=== PATIENT | female | born 1990 | race Caucasian/White ===

== ENCOUNTER → 2017-07-09 10:19 | Outpatient (CLI) | payer MEDICAID, SELFPAY ==
[2017-07-09 11:09] LABS: Hematocrit 39.6 % (37-47); Hemoglobin 12.8 g/dl (12.0-15.0); Mean Corp Hgb Conc 32.3 g/gl (32-36); Mean Corpuscular Hgb 28.8 pg (27.0-32.0); Mean Corpuscular Volume 89.2 fL (81-99); Mean Platelet Vol. 11.5 fl (6.2-12.0); Platelet Count 126 K/mm3 (150-450); RBC Distribution Width CV 13.4 % (11.6-14.6); RBC Distribution Width SD 43.5 fl (35.1-43.9); Red Blood Count 4.44 M/mm3 (4.2-5.4); White Blood Count 11.2 K/mm3 (4.4-11.0)
[2017-07-09 11:10] LABS: Scan Indicated on CBC? Y/N NO
[2017-07-09 12:39] LABS: Group B Strep DNA By PCR Negative (Negative); Internal Control PASS; Probe Check PASS; Specimen Processing Control PASS
== END ==
PROVIDERS: Visit Provider Obstetrics & Gynecology
DX: D69.6 Thrombocytopenia, unspecified (principal); Z36.85 Encounter for antenatal screening for Streptococcus B
CPT/HCPCS: 36415; 85027; 87081; 87653

== ENCOUNTER → 2017-08-02 13:45 | Outpatient (CLI) | payer MEDICAID, SELFPAY ==
[2017-08-02 16:22] LABS: Hematocrit 40.2 % (37-47); Hemoglobin 12.9 g/dl (12.0-15.0); Mean Corp Hgb Conc 32.1 g/gl (32-36); Mean Corpuscular Hgb 29.1 pg (27.0-32.0); Mean Corpuscular Volume 90.5 fL (81-99); Mean Platelet Vol. 11.5 fl (6.2-12.0); Platelet Count 128 K/mm3 (150-450); RBC Distribution Width CV 13.5 % (11.6-14.6); Red Blood Count 4.44 M/mm3 (4.2-5.4); White Blood Count 13.9 K/mm3 (4.4-11.0)
[2017-08-02 16:27] LABS: Scan Indicated on CBC? Y/N NO
== END ==
PROVIDERS: Visit Provider Obstetrics & Gynecology
DX: D69.6 Thrombocytopenia, unspecified (principal)
CPT/HCPCS: 85027

== ENCOUNTER 2017-08-12 07:00 | Inpatient (IN) | payer MEDICAID, SELFPAY ==
[2017-08-12 07:19] VITALS: BMI 35.0
[2017-08-12] MEDS: Lactated Ringers 1,000 ML 50 ML IV ×3 (07:30→21:13)
[2017-08-12] MEDS: Oxytocin 30 units/NS 500 ml 30 UNITS/500 ML IV.SOLN IV (07:52)
[2017-08-12 08:04] LABS: Hematocrit 39.4 % (37-47); Hemoglobin 12.7 g/dl (12.0-15.0); Mean Corp Hgb Conc 32.2 g/gl (32-36); Mean Corpuscular Hgb 28.9 pg (27.0-32.0); Mean Corpuscular Volume 89.7 fL (81-99); Mean Platelet Vol. 11.7 fl (6.2-12.0); Platelet Count 139 K/mm3 (150-450); RBC Distribution Width CV 13.6 % (11.6-14.6); RBC Distribution Width SD 44.1 fl (35.1-43.9); Red Blood Count 4.39 M/mm3 (4.2-5.4); Scan Indicated on CBC? Y/N NO; White Blood Count 12.8 K/mm3 (4.4-11.0)
--- NOTE | 2017-08-12 14:18 | PCM.PN.BLA ---
Progress Note LABOR PROGRESS NOTE Sitting up in rocker at present. States feeling UCs a little more than this am. No epidural or pain med request yet AVSS Pitocin at 11 mIU/min EFM 130-140s with accels. Category I UCs q 2-4 mins. Coupling and spacing. CX: 2.5/70/-2 at last check about 1 hr ago A/P: 40 3/7 wk induction of labor. Continue Pitocin per protocol. Watch progress. pain med including epidural OK if requested. Anticipate
[2017-08-12] MEDS: Nalbuphine 10 MG/ML Ampul IV (16:32)
--- NOTE | 2017-08-12 17:45 | PCM.PN.BLA ---
Progress Note LABOR PROGRESS NOTE Pitocin induction after AROM AVSS Pitocin at 15 mIU/min EFM 120-130s with avg variability Accels. Category I tracing UCs q 2 - 4m ins. CX /-1 last check. A/P: 40 3/7 wk induction elective, social. Continue pitocin Anticipate .
[2017-08-12] MEDS: Ondansetron 4 MG/2 ML Vial IV (18:19)
--- NOTE | 2017-08-12 20:16 | PCM.PN.BLA ---
Progress Note LABOR PROGRESS NOTE Epidural in place AVSS Pitocin induction after AROM EFM 120s with accels. Category I tracing. Early decelerations noted also. UCs q 2-4 mins CX at 1935: 3//-1 A/P: 40 3/7 wk induction . Social. EFM reassuring Continue induction. Anticipate .
[2017-08-12] MEDS: Oxytocin 30 units/NS 500 ml 30 UNITS/500 ML IV.SOLN 334 UNITS IV (23:41)
--- NOTE | 2017-08-12 23:44 | PCM.OB.VAG ---
Vaginal Delivery Maternal Presentation: Elective Induction 40 3/7 wk induction of labor. Method of Induction: Pitocin, Amniotomy Amniotic Membrane Rupture Type: Artificial Amniotic Fluid Description: Clear Final ELY: 08/09/17 Gestational age: 40 Weeks and 3 Days Date of Procedure: 08/12/17 Pre-Operative Diagnosis: 40 3/7 wk induction Post-Operative Diagnosis: same Surgery/ Procedure Performed: Spontaneous Vaginal Delivery Type of Anesthesia: Epidural Description of Procedure: of a lilly viable male over intact perineum. Head delivered VIVIANA. Nuchal cord x one reduced. Shoulders delivered easily. Baby onto bed and OP and nares bulb suctioned. Baby to maternal abdomen for stimulation. Delayed cord clamp x 30 sec. Placenta delivered by spont expulsion, expression. Normal appearing, intact, with 3 v cord and trailing membranes PP exam: no lacerations. EBL 250 cc Pt and infant tolerated delivery well. To recovery, stable condition. Presentation: Vertex, VIVIANA Placental Delivery Description: Spontaneous, Expressed Placenta Disposition: [facility] Cord Vessel Description: 3 Vessels Nuchal Cord Compression: Without compression Cord Entanglement: Around neck x 1, loose Drain: Galeas to straight drain Estimated Blood Loss: 250 Infant A gender: Male (1 minute): 8 (5 minute): 9 Episiotomy Description: None Laceration: None Medications given after delivery: IV Pitocin Complications: None
--- NOTE | 2017-08-12 23:51 | OP.PCM_ITS ---
Vaginal Delivery Maternal Presentation: Elective Induction 40 3/7 wk induction of labor. Method of Induction: Pitocin, Amniotomy Amniotic Membrane Rupture Type: Artificial Amniotic Fluid Description: Clear Final ELY: 08/09/17 Gestational age: 40 Weeks and 3 Days Date of Procedure: 08/12/17 Pre-Operative Diagnosis: 40 3/7 wk induction Post-Operative Diagnosis: same Surgery/ Procedure Performed: Spontaneous Vaginal Delivery Type of Anesthesia: Epidural Description of Procedure: of a lilly viable male over intact perineum. Head delivered VIVINAA. Nuchal cord x one reduced. Shoulders delivered easily. Baby onto bed and OP and nares bulb suctioned. Baby to maternal abdomen for stimulation. Delayed cord clamp x 30 sec. Placenta delivered by spont expulsion, expression. Normal appearing, intact, with 3 v cord and trailing membranes PP exam: no lacerations. EBL 250 cc Pt and infant tolerated delivery well. To recovery, stable condition. Presentation: Vertex, VIVIANA Placental Delivery Description: Spontaneous, Expressed Placenta Disposition: [facility] Cord Vessel Description: 3 Vessels Nuchal Cord Compression: Without compression Cord Entanglement: Around neck x 1, loose Drain: Galeas to straight drain Estimated Blood Loss: 250 Infant A gender: Male (1 minute): 8 (5 minute): 9 Episiotomy Description: None Laceration: None Medications given after delivery: IV Pitocin Complications: None
--- NOTE | 2017-08-12 23:54 | DCINST_ITS ---
Discharge Diet: No Restrictions Discharge Activity: May Shower, May Take a Tub Bath May resume sexual activity in: 4-6 weeks Additional Activity Instructions:: Nothing in the vagina for 4-6 weeks. You may return to work/school in 6 weeks. Additional Instructions: If you experience any of the following, contact your healthcare provider. * Bleeding that soaks a pad every hour for 2 hours * Fever 100.4 or higher * Unrelieved abdominal pain * Problems urinating (including inability to urinate or burning while urinating) . * Visual changes * Severe headache * Flu-like symptoms * Pain or redness in one of both of your breasts * Pain, warmth, tenderness or swelling in your legs, especially the calf area * Frequent nausea and vomiting * Symptoms of depression or anxiety If you experience any of the following, call 911 or go to the nearest Emergency Room. * Chest pain * Problems breathing * Seizure activity * Partial or complete paralysis of a body part, slurred speech, weakness or drooping of the face, or a sudden inability to walk or hold your balance Allergies/Adverse Reactions: Allergies No Known Allergies Allergy (Verified 08/12/17 07:17) Medications to take at Discharge Vits [Prenatabs FA] 1 tablet PO DAILY 06/02/17 Acyclovir 800 mg PO BID 08/12/17 Orders to be completed after discharge: Electric breast pump Time Frame: 1 Year, Location: None Selected Please Follow Up With: Irasema Leong MD - [phone] When: Call to make an appointment with your doctor in 6 weeks. If you had elevated Blood Pressure or 4th degree laceration you will need to be seen in 2 weeks. Primary Care Physician: Celso Oreilly MD [Primary Care Provider] - Proposed Discharge Date: 08/14/17
[2017-08-13] MEDS: Oxytocin 30 units/NS 500 ml 30 UNITS/500 ML IV.SOLN 167 UNITS IV (00:15)
[2017-08-13] MEDS: Ibuprofen 600 MG Tablet PO ×4 (01:54→22:27)
[2017-08-13 05:00] VITALS: BP 101/64; PULSE 80; RESP 18; TEMP 36.8; O2SAT 98
[2017-08-13] MEDS: Acetaminophen 500 MG Tablet 1000 MG PO ×2 (06:50→14:25)
[2017-08-13 08:15] VITALS: BP 95/54; PULSE 76; RESP 18; TEMP 36.6
--- NOTE | 2017-08-13 08:26 | PCM.PN.OB ---
Subjective: PPD#1 doing well Fully dressed and going out to smoke. would like to go home today later in day if possible, to settle in at home. - Physical Exam General: Alert, Oriented x3, Cooperative, No apparent distress HEENT: Atraumatic Neck: Supple Neurological: Cranial nerves II-XII grossly intact Psych/Mental Status: Normal Affect Vital Signs Temp Pulse Resp BP Pulse Ox 98.3 F 80 18 101/64 98 08/13/17 05:00 08/13/17 05:00 08/13/17 05:00 08/13/17 05:00 08/13/17 05:00 Oxygen Delivery Method Room Air Weight: 89.811 kg Body Mass Index (BMI) 35.0 Intake and Output for Last 24 Hours 08/11/17 08/12/17 08/13/17 23:59 23:59 23:59 Intake Total 2735 / 2735 680 / 680 Output Total 700 / 700 1600 / 1600 Balance 2035 / 2035 -920 / -920 Laboratory Tests Past 24 Hrs 08/12/17 07:30 Blood Type A POSITIVE Antibody Screen NEGATIVE
--- NOTE | 2017-08-13 10:09 | NURSING ---
pt voided did not save urine
[2017-08-13] MEDS: Prenatal Vits Tablet 1 TABLET PO (10:28)
[2017-08-13] MEDS: Acyclovir 800 MG Tablet PO ×2 (10:28→22:27)
[2017-08-13 12:00] VITALS: BP 95/54; PULSE 80; RESP 16; TEMP 36.7
[2017-08-13 16:00] VITALS: BP 108/70; PULSE 68; RESP 18; TEMP 36.6
[2017-08-13 19:44] VITALS: BP 109/65; PULSE 74; RESP 18; TEMP 36.3
[2017-08-14 02:07] VITALS: BP 104/55; PULSE 68; RESP 18; TEMP 36.6
[2017-08-14] MEDS: Acetaminophen 500 MG Tablet 1000 MG PO ×2 (02:11→09:42)
[2017-08-14] MEDS: Ibuprofen 600 MG Tablet PO (05:41)
--- NOTE | 2017-08-14 09:36 | PCM.DCVAG ---
Discharge Diet: No Restrictions Discharge Activity: May Shower, May Take a Tub Bath May resume sexual activity in: 4-6 weeks Additional Activity Instructions:: Nothing in the vagina for 4-6 weeks. You may return to work/school in 6 weeks. Additional Instructions: If you experience any of the following, contact your healthcare provider. Bleeding that soaks a pad every hour for 2 hours Fever 100.4 or higher Unrelieved incision or abdominal pain Swelling, redness, discharge or bleeding from your incision or episiotomy site Your incision begins to separate Problems urinating (including inability to urinate or burning while urinating). Visual changes Severe headache Flu-like symptoms Pain or redness in one of both of your breasts Pain, warmth, tenderness or swelling in your legs, especially the calf area Frequent nausea and vomiting Symptoms of depression or anxiety If you experience any of the following, call 911 or go to the nearest Emergency Room. Chest pain Problems breathing Seizure activity Partial or complete paralysis of a body part, slurred speech, weakness or drooping of the face, or a sudden inability to walk or hold your balance Allergies/Adverse Reactions: Allergies No Known Allergies Allergy (Verified 08/12/17 07:17) Medications to take at Discharge Vits [Prenatabs FA] 1 tablet PO DAILY 06/02/17 Acyclovir 800 mg PO BID 08/12/17 Ibuprofen 600 mg PO 4X/DAY PRN #30 tab 08/13/17 The following prescriptions were given: Ibuprofen 600 mg PO 4X/DAY PRN #30 tab PRN Reason: Mild-Mod Pain (1-5/10) Orders to be completed after discharge: Electric breast pump Time Frame: 1 Year, Location: None Selected Please Follow Up With: Irasema Leong MD When: 6 weeks Primary Care Physician: Celso Oreilly MD [Primary Care Provider] - Proposed Discharge Date: 08/14/17
--- NOTE | 2017-08-14 09:37 | DCINST_ITS ---
Discharge Diet: No Restrictions Discharge Activity: May Shower, May Take a Tub Bath May resume sexual activity in: 4-6 weeks Additional Activity Instructions:: Nothing in the vagina for 4-6 weeks. You may return to work/school in 6 weeks. Additional Instructions: If you experience any of the following, contact your healthcare provider. * Bleeding that soaks a pad every hour for 2 hours * Fever 100.4 or higher * Unrelieved incision or abdominal pain * Swelling, redness, discharge or bleeding from your incision or episiotomy site * Your incision begins to separate * Problems urinating (including inability to urinate or burning while urinating) . * Visual changes * Severe headache * Flu-like symptoms * Pain or redness in one of both of your breasts * Pain, warmth, tenderness or swelling in your legs, especially the calf area * Frequent nausea and vomiting * Symptoms of depression or anxiety If you experience any of the following, call 911 or go to the nearest Emergency Room. * Chest pain * Problems breathing * Seizure activity * Partial or complete paralysis of a body part, slurred speech, weakness or drooping of the face, or a sudden inability to walk or hold your balance Allergies/Adverse Reactions: Allergies No Known Allergies Allergy (Verified 08/12/17 07:17) Medications to take at Discharge Vits [Prenatabs FA] 1 tablet PO DAILY 06/02/17 Acyclovir 800 mg PO BID 08/12/17 Ibuprofen 600 mg PO 4X/DAY PRN #30 tab 08/13/17 The following prescriptions were given: Ibuprofen 600 mg PO 4X/DAY PRN #30 tab PRN Reason: Mild-Mod Pain (1-10/14) Orders to be completed after discharge: Electric breast pump Time Frame: 1 Year, Location: None Selected Please Follow Up With: Irasema Leong MD When: 6 weeks Primary Care Physician: Celso Oreilly MD [Primary Care Provider] - Proposed Discharge Date: 08/14/17
--- NOTE | 2017-08-14 09:37 | PCM.PN.OB ---
Subjective: No issues overnight. She is , denies heavy lochia. No complaints. Objective: avss - Physical Exam General: Alert, Oriented x3, Cooperative, No apparent distress HEENT: Atraumatic, Normocephalic Lungs: Clear to auscultation, Normal air movement Cardiovascular: Regular rate, Regular Rhythm Abdomen: Soft, Non Tender, Non-Distended, - - Fundus firm and nontender Extremities: No edema, No Calf Tenderness Neurological: Neuro grossly intact Psych/Mental Status: Normal Affect, Appropriate, Alert and oriented to time, place, person, mood and affect Vital Signs Temp Pulse Resp BP Pulse Ox 97.8 F 68 18 104/55 L 98 08/14/17 02:07 08/14/17 02:07 08/14/17 02:07 08/14/17 02:07 08/13/17 05:00 Oxygen Delivery Method Room Air Weight: 89.811 kg Body Mass Index (BMI) 35.0 Intake and Output for Last 24 Hours 08/12/17 08/13/17 08/14/17 23:59 23:59 23:59 Intake Total 2735 / 2735 680 / 680 Output Total 700 / 700 1600 / 1600 Balance 2034 / 2034 -920 / -920 Assessment/Plan 27yo PPD#2 s/p doing well. -A pos, Rubella immune - -d/c home
--- NOTE | 2017-08-14 09:41 | PCM.DC.SUM ---
Discharge Date and Diagnosis - Problem List Patient Problems: Active and Suspected Problems (spontaneous vaginal delivery) (Acute) Date of Admission: 08/12/17 Date of Discharge: 08/14/17 Hospital Course and Treatment Operations: None Procedures: None Summary of Care Provided: The patient is a 27 year old F admitted for elective induction of labor. She had an uncomplicated . Her course was unremarkable and she was discharged to home on day #2. Discharge Diet: No Restrictions Discharge Activity: May Shower, May Take a Tub Bath May resume sexual activity in: 4-6 weeks Additional Activity Instructions:: Nothing in the vagina for 4-6 weeks. You may return to work/school in 6 weeks. Home Medications: Medications to take at Discharge Vits [Prenatabs FA] 1 tablet PO DAILY 06/02/17 Acyclovir 800 mg PO BID 08/12/17 Ibuprofen 600 mg PO 4X/DAY PRN #30 tab 08/13/17 Following Prescrptions Were Given to Patient: Ibuprofen 600 mg PO 4X/DAY PRN #30 tab PRN Reason: Mild-Mod Pain (1-5/10) Other Amb Orders: Electric breast pump Time Frame: 1 Year, Location: None Selected Primary Care Physician: Celso Oreilly MD [Primary Care Provider] - Please Follow Up With: Irasema Leong MD Meaningful Use Info Meaningful Use Diagnoses (Choose all that apply): None applicable
[2017-08-14 10:00] VITALS: BP 110/55; PULSE 75; RESP 16; TEMP 36.7
--- NOTE | 2017-08-14 14:55 | NURSING ---
1115 Discharged to home with baby via wheelchair to car. Pt anxious to go home and states she is able to care for herself and her infant.
== END 2017-08-14 11:15 | disposition home or self-care (01) | DRG 373 ==
PROVIDERS: Admitting Provider Obstetrics & Gynecology; Family Provider Family Medicine; PCP Family Medicine; Visit Provider Obstetrics & Gynecology
DX: O76 Abnormality in fetal heart rate and rhythm complicating labor and delivery (principal); O48.0 Post-term pregnancy; O69.81X0 Labor and delivery complicated by cord around neck, without compression, not applicable or unspecified; O99.334 Smoking (tobacco) complicating childbirth; Z3A.40 40 weeks gestation of pregnancy; Z37.0 Single live birth
CPT/HCPCS: 59025; 59050; 85027; 86850; 86900; 99218; J7120; 90686; G0378; J2405

== ENCOUNTER 2017-08-16 10:05 | Outpatient (CLI) | payer MEDICAID, SELFPAY | END 2017-08-16 11:05 | disposition home or self-care (01) | LOC: WPOUT 10:09 → WP 10:10 | PROVIDERS: Family Provider Family Medicine; PCP Family Medicine; Visit Provider Obstetrics & Gynecology | DX: O92.79 Other disorders of lactation (principal) | CPT/HCPCS: 96152 ==

== ENCOUNTER → 2017-09-24 14:02 | Outpatient (CLI) | payer MEDICAID, SELFPAY ==
[2017-09-28 16:16] LABS: HPV Reflexed? NOT INDICATED
== END ==
PROVIDERS: Visit Provider Obstetrics & Gynecology
DX: Z12.4 Encounter for screening for malignant neoplasm of cervix (principal)
CPT/HCPCS: 88175; G0145

== ENCOUNTER → 2018-07-12 14:11 | Outpatient (CLI) | payer MEDICAID, SELFPAY ==
[2018-07-12 20:12] LABS: Chlamydia Trachomatis by PCR Negative (Negative); Neisserai gonorrhoeae by PCR Negative (Negative); Probe Check PASS; Sample Adequacy Control PASS; Specimen Processing Control PASS
[2018-07-16 11:17] LABS: HPV Reflexed? NOT INDICATED
== END ==
PROVIDERS: Visit Provider Obstetrics & Gynecology
DX: Z12.4 Encounter for screening for malignant neoplasm of cervix (principal); Z11.3 Encounter for screening for infections with a predominantly sexual mode of transmission
CPT/HCPCS: 87491; 87591; 88175; G0145

== ENCOUNTER → 2018-07-26 15:51 | Outpatient (CLI) | payer MEDICAID, SELFPAY ==
[2018-07-26 17:14] LABS: Absolute Lymphocyte Count 1.57 X10^3/ul (0.83-4.51); Absolute Neutrophil Count 5.1 X10^3/uL (2.0-7.7); Color, Urine Straw (Yellow); Eosinophil# 0.06 X10^3/uL; Eosinophils% 0.8 % (0-5); Glucose, Dipstick Normal (Normal); Hematocrit 41.2 % (37-47); Hemoglobin 13.5 g/dl (12.0-15.0); Ketone-Dipstick Negative (Negative); Leukocyte Esterase-Dipstick Negative /ul (Negative); Lymphocyte # 1.57 X10^3/ul (4.0); Lymphocyte % 21.9 % (19-41); Mean Corp Hgb Conc 32.8 g/gl (32-36); Mean Corpuscular Hgb 29.5 pg (27.0-32.0); Mean Platelet Vol. 12.1 fl (6.2-12.0); Monocyte# 0.46 X10^3/uL; Monocyte% 6.4 % (0-10); Neutrophil # 5.08 X10^3/uL (2.7-7.7); Neutrophil % 70.8 % (47-70); Nitrite-Dipstick Negative (Negative); Occult Blood-Urine Negative /ul (Negative); Platelet Count 146 K/mm3 (150-450); Protein-Dipstick Negative (Negative); Red Blood Count 4.58 M/mm3 (4.2-5.4); Urine Bilirubin Dipstick Negative (Negative); Urine Clarity Clear (Clear); Urine Urobilinogen Normal (Normal); Urine pH 6.5 (5.0 - 8.0); White Blood Count 7.2 K/mm3 (4.4-11.0)
[2018-07-26 17:18] LABS: POSITIVE COUNT NO; POSITIVE DIFFERENTIAL NO; POSITIVE MORPHOLOGY NO
[2018-07-26 17:31] LABS: Thyroid Stim Hormone (TSH) 2.09 uIU/mL (0.358-3.74)
[2018-07-26 17:58] LABS: Amphetamine Urine VISTA NEGATIVE (<1000 ng/mL); Barbiturate Urine VISTA NEGATIVE (< 200 ng/mL); Benzodiazepine Urine VISTA NEGATIVE (< 200 ng/mL); Cocaine Urine VISTA NEGATIVE (< 300 ng/mL); Ecstacy Urine VISTA NEGATIVE (< 500 ng/mL); Methadone Urine VISTA NEGATIVE (< 300 ng/mL); PCP Urine VISTA NEGATIVE (< 25 ng/mL); THC Urine VISTA NEGATIVE (< 50 ng/mL); Vista UDS pH Range 6
[2018-07-26 18:11] LABS: HIV - WCH Non-Reactive (Nonreactive); Rubella IgG 131.4 IU/mL; Vitamin D,25 Hydroxy 15.6 ng/mL (29.95-100.01)
[2018-07-28 08:52] LABS: HEPATITIS B SURFACE AG Negative (Negative); Hep C Antibodies <0.1 s/co ratio (0.0-0.9)
[2018-07-29 00:50] LABS: Prenatal RPR NONREACTIVE (NONREACTIVE)
== END ==
PROVIDERS: Visit Provider Obstetrics & Gynecology
DX: Z34.81 Encounter for supervision of other normal pregnancy, first trimester (principal)
CPT/HCPCS: 36415; 80307; 81002; 82306; 84443; 85025; 86703; 86762; 86803; 87340

== ENCOUNTER → 2018-12-06 | Outpatient (CLI) | payer MEDICAID, SELFPAY ==
[2018-12-06 10:38] LABS: Glucose Challenge Gest 1H 50g 101 mg/dL (70-140)
[2018-12-06 10:40] LABS: Hematocrit 37.1 % (37-47); Hemoglobin 12.3 g/dl (12.0-15.0); Mean Corp Hgb Conc 33.2 g/gl (32-36); Mean Corpuscular Hgb 29.9 pg (27.0-32.0); Mean Platelet Vol. 11.5 fl (6.2-12.0); Platelet Count 117 K/mm3 (150-450); RBC Distribution Width CV 13.2 % (11.6-14.6); RBC Distribution Width SD 43.2 fl (35.1-43.9); Red Blood Count 4.12 M/mm3 (4.2-5.4); Scan Indicated on CBC? Y/N NO; White Blood Count 10.2 K/mm3 (4.4-11.0)
== END | disposition home or self-care (01) ==
LOC: LABSPEC 09:19
PROVIDERS: Visit Provider Obstetrics & Gynecology
DX: Z34.83 Encounter for supervision of other normal pregnancy, third trimester (principal)
CPT/HCPCS: 82950; 85027

== ENCOUNTER 2019-01-15 17:55 | Outpatient (CLI) | payer MEDICAID, SELFPAY ==
[2019-01-15 18:21] VITALS: BMI 29.1
--- NOTE | 2019-01-15 18:57 | OB.TRI.HP_ITS ---
- Problem List (1) 33 weeks gestation of Status: Acute History of Present Illness Date of Service: 01/15/19 Was patient seen by the physician?: Yes Reason For Visit: RULE OUT LABOR Final ELY: 02/27/19 Final ELY Source: US <20 weeks Gestational age: 34 Weeks and 5 Days History of Present Illness: 28yo @ 33 6/7wga with c/o frequent contractions. + FM, no leaking of fluid or vaginal bleeding. Allergies No Known Allergies Allergy (Verified 08/12/17 07:17) - Pertinent Past Medical History Medical History: Past Medical History (Last Updated 01/15/19 @ 19:08 by Linda Payton MD) Bipolar disorder HSV (herpes simplex virus) anogenital infection Review of Systems Constitutional: Denies: Chills, Fever HEENT: Denies: Nasal Congestion, Sinus Congestion, Sinus Drainage, Sore Throat Cardiovascular: Denies: Chest Pain Respiratory: Denies: Cough, Shortness of Breath Gastrointestinal: Denies: Constipation, Diarrhea, Nausea, Vomiting Genitourinary: Reports: Frequency. Denies: Dysuria Gynecological: Denies: Vaginal bleeding Physical Exam Vitals: avss General: Alert, Oriented x3, Cooperative, No apparent distress HEENT: Atraumatic, Normocephalic Lungs: Normal air movement Abdomen: Soft, Non Tender, Non-Distended, Gravid, - Extremities:: No edema Neurological: Neuro grossly intact [employer]ATIONS: Normal external genitalia Estimated gestational size: Appropriate for gestational size Presentation: Cephalic Cervix Dilation (cm): 1.5 Station: -3 Effacement (%): 40 NST - FHR Rate Baby A Baseline: 140 Variability:: Moderate Accelerations:: 15 x 15 Decelerations:: None NST Reactive:: Yes FHR Category:: Category I Uterine Activity:: 3/10 Impression/Plan 28yo @ 33 6/7wga with Cat I FHR -r/o labor -U/A -FFN -PO hydration encouraged Addendum: FFN negative, no worsening of symptoms. patient discharged to home.
[2019-01-15 19:40] LABS: Fetal Fibronectin Negative
[2019-01-15 19:46] LABS: Red Blood Cells-Urine 0 SEEN /hpf (0-5)
[2019-01-15 19:51] LABS: Color, Urine Yellow (Yellow); Glucose, Dipstick Normal (Normal); Ketone-Dipstick 15 mg/dl (Negative); Leukocyte Esterase-Dipstick Negative /ul (Negative); Nitrite-Dipstick Negative (Negative); Occult Blood-Urine Negative /ul (Negative); Protein-Dipstick Negative (Negative); Urine Bilirubin Dipstick Negative (Negative); Urine Clarity Clear (Clear); Urine Urobilinogen Normal (Normal)
[2019-01-15 19:57] LABS: Bacteria RARE /hpf (None Seen); Mucous, Urine RARE /hpf (<or=2+); Squamous Epithelial Cells - UA 0-5 SEEN /hpf (5-10); White Blood Cells 0-5 SEEN /hpf (0-5)
== END 2019-01-15 20:30 | disposition home or self-care (01) ==
LOC: WPOUT 18:03 → WP 18:04
PROVIDERS: Visit Provider Obstetrics & Gynecology
DX: O62.9 Abnormality of forces of labor, unspecified (principal); Z3A.33 33 weeks gestation of pregnancy
CPT/HCPCS: 59025; 59050; 81001; 82731; 87086; 87088; 99218; G0378

== ENCOUNTER → 2019-02-02 | Outpatient (CLI) | payer MEDICAID, SELFPAY ==
[2019-01-15 18:21] VITALS: BMI 29.1
== END | disposition home or self-care (01) ==
LOC: LABSPEC 10:05
PROVIDERS: Visit Provider Obstetrics & Gynecology
DX: Z36.85 Encounter for antenatal screening for Streptococcus B (principal)
CPT/HCPCS: 87081

== ENCOUNTER 2019-02-26 07:03 | Inpatient (IN) | payer MEDICAID, SELFPAY ==
[2019-02-26] VITALS (14 sets, daily range): BP systolic 107–128; BP diastolic 43–80; PULSE 58–78; RESP 14–18; TEMP 36.1–36.9; O2SAT 98–100; BMI 32.1
--- NOTE | 2019-02-26 08:11 | PCM.HPOB.BLA ---
History and Physical Date of Admission: 02/26/19 HISTORY AND PHYSICAL EXAMINATION History of this : 28 yo female Ab0 with EDC 02/27/2019 by 9 weeks 1 day Ultrasound, presents to Labor and Delivery for induction of labor, elective. Planned AROM and Pitocin. Hx of HSV and has been on daily suppressive therapy but relates missed doses in the last week and awoke this AM with active outbreak of HSV L labia/perineum. Advised of options. With active outbreak at time of delivery, C section indicated. May elect to go home and await onset of labor, but aware that healing may take several weeks. Given clinical scenario and options, will proceed with primary C section. care remarkable for: A positive. Rubella immune. GBS negative. 1.) Vit D deficiency 2.) First child with autism 3.) HSV history, daily suppression started at 35+ wks, missed doses and with active HSV at time of planned induction. 4.) Bipolar with h/o depression, cutting Pertinent Past Medical History: As above. Allergies: NKDA Medications: During - acyclovir 400 mg tablet bid ; + DHA 28 mg iron- 975 mcg-200 mg combo pack; Vitamin D3 2,000 unit capsule Review of Systems: Prodrome to active HSV L perineum. PAST HISTORY: Breast/Ovarian/Colon Cancers - none Infections - HX. OF UTI'S, HX OF ABNORMAL PAPs, chickenpox vaccine, kidney infection and herpes Illnesses - Bi-Polar, depression, cutting-none for 3 years Accidents - None History of Abnormal PAPS - YES Hospitalizations - Childbirth SURGICAL HISTORY: 1. 01/20/2012 Cryosurgery [facility] MENSTRUAL HISTORY: LMP Known?- Approximate-Month KnownAmount/Duration - 6 days, Regularity - Regular, Frequency - monthly days, LMP - 05/23/18, Age Onset Menarche - 14 PAST PREGNANCIES: Three prior vaginal deliveries at term. Total Pregnancies - 4; Full Term Pregnancies - 3; Premature - 0; Abortions, Induced - 0; Abortions, Spontaneous - 0; Ectopics - 0; Multiple Births - 0; Living Children - 3 FAMILY HISTORY: Father - Heart Attack; Father - Chronic obstructive lung disease; Father - Father smokes; Mother - Hypertension; Brother - Type 2 Diabetes; MaternalGrandparent - FH: Prostate cancer; MaternalGrandparent - Unknown Disease; SOCIAL HISTORY: Alcohol Use - occasionally not while Smoking - smoked off and on x 10 y. Stopped in October 2016 Diet - balanced Diet and Occ coffee. Water intake 6-7 bottles water daily. Lifestyle - moderate stress lifestyle, and 6 yo son has autism Exercise - regular and Dances. Walks in the nice weather. Seat Belt Use - always Employer - homemaker Illicit Drug Use - smoked pot as teenager. Sexual Activity - Residence - owns a home Place of - [place] Spouse-Sig Other Name - Aris Weber Spouse-Sig Other Occupation - [employer] Spouse-Sig Other Phone No - [phone] Children Name(s) - Malia (boy, JW), Sudha (girl , DS), Myron ( boy, EB) Control - PHYSICAL EXAMINATION General Appearance: 28 yo female in no acute distress Vital Signs: AF, VSS Abdomen: gravid Pelvis: Cervix: Deferred. Presentation: cephalic Fetus: AGA Movement: present Heart: present Impression /Plan: Intrauterine . 39 6/7 wk planned induction of labor (elective), but with active HSV this am. Reviewed options and will proceed with primary C section as indicated. She had breakfast on way to hospital, defer C/S for NPO prior to C section which will be scheduled for this afternoon. IV fluids , CBC, NST this am. Garrett Leong MD 02/26/19 0819 H and P generated shortly after patient seen and examined. See progress notes for changes.
[2019-02-26 11:20] LABS: Absolute Lymphocyte Count 1.35 X10^3/uL (0.83-4.51); Absolute Neutrophil Count 9.2 X10^3/uL (2.0-7.7); Basophil# 0.02 X10^3/uL; Basophil% 0.2 % (0-1); Eosinophil# 0.09 X10^3/uL; Eosinophils% 0.8 % (0-5); Hematocrit 38.7 % (37-47); Hemoglobin 12.6 g/dL (12.0-15.0); Lymphocyte # 1.35 X10^3/ul (4.0); Lymphocyte % 11.7 % (19-41); Mean Corp Hgb Conc 32.6 g/dL (32-36); Mean Corpuscular Hgb 29.4 pg (27.0-32.0); Mean Corpuscular Volume 90.2 fL (81-99); Mean Platelet Vol. 12.2 fl (6.2-12.0); Monocyte# 0.79 X10^3/uL; Monocyte% 6.9 % (0-10); NRBC Flagged by Analyzer 0 % (0-5); Neutrophil # 9.15 X10^3/uL (2.7-7.7); Neutrophil % 79.4 % (47-70); Platelet Count 110 K/mm3 (150-450); RBC Distribution Width CV 13.4 % (11.6-14.6); RBC Distribution Width SD 43.8 fl (35.1-43.9); Red Blood Count 4.29 M/mm3 (4.2-5.4); White Blood Count 11.5 K/mm3 (4.4-11.0)
[2019-02-26] MEDS: Lactated Ringers 1,000 ML 999 ML IV (13:41)
[2019-02-26] MEDS: Lactated Ringers 1,000 ML 150 ML IV (14:51)
[2019-02-26] MEDS: Sodium Citrate/Citric Acid 30 ML UDC PO (14:52)
--- NOTE | 2019-02-26 15:00 | DCINST_ITS ---
Discharge Diet: No Restrictions Discharge Activity: May Shower, May Take a Tub Bath May resume sexual activity in: 4-6 weeks Lifting Restrictions: 20 pounds Additional Activity Instructions:: Nothing in the vagina for 4-6 weeks. You may return to work/school in 6 weeks. Change Dressing in (Days):: 7 Remove Dressing in (days):: 7 Cleanse incision/area with: Soap & Water, Keep Dressing Clean & Dry Additional Dressing/Incision Instructions:: You may take two Tylenol by mouth every 6 hr and add EITHER two Aleve or two (200 mg each tabs) Ibuprofen . Take OxyIR for more severe pain in addition, as needed. resume bar pilot activity as comfortable (ex: walking, stairs, etc) Additional Instructions: If you experience any of the following, contact your healthcare provider. * Bleeding that soaks a pad every hour for 2 hours * Fever 100.4 or higher * Unrelieved incision or abdominal pain * Swelling, redness, discharge or bleeding from your incision * Problems urinating (including inability to urinate or burning while urinating). * Visual changes * Severe headache * Flu-like symptoms * Pain or redness in one of both of your breasts * Pain, warmth, tenderness or swelling in your legs, especially the calf area * Frequent nausea and vomiting * Symptoms of depression or anxiety If you experience any of the following, call 911 or go to the nearest Emergency Room. * Chest pain * Problems breathing * Seizure activity * Partial or complete paralysis of a body part, slurred speech, weakness or drooping of the face, or a sudden inability to walk or hold your balance Allergies/Adverse Reactions: Allergies No Known Allergies Allergy (Verified 02/26/19 08:37) Medications to take at Discharge Vits [Prenatabs FA] 1 tablet PO DAILY 06/02/17 Cholecalciferol (Vitamin D3) [Vitamin D3] 2,000 unit PO DAILY 01/15/19 Acyclovir 400 mg PO BID 02/26/19 Acyclovir [Zovirax] 800 mg PO BID #10 tab 02/26/19 Docusate Sodium [Colace] 100 mg PO BID #30 cap 02/26/19 Naproxen [Naprosyn] 250 - 500 mg PO TID PRN PRN #30 tab 02/26/19 Oxycodone [Oxyir] 5 mg PO Q6H PRN PRN 3 Days #15 tablet 02/26/19 Polyethylene Glycol 3350 [Miralax] 17 gm PO DAILY PRN #14 packet 02/26/19 The following prescriptions were given: Docusate Sodium [Colace] 100 mg PO BID #30 cap Transmission Status: Pending to [facility] #30 Polyethylene Glycol 3350 [Miralax] 17 gm PO DAILY PRN #14 packet PRN Reason: Constipation Transmission Status: Pending to [facility] #30 Naproxen [Naprosyn] 250 - 500 mg PO TID PRN PRN #30 tab PRN Reason: Mild-Mod Pain (1-10/14) Transmission Status: Pending to [facility] #30 Oxycodone [Oxyir] 5 mg PO Q6H PRN PRN 3 Days #15 tablet PRN Reason: Mod-Severe Pain (-03/16) Transmission Status: Sent to [facility] #30 Acyclovir [Zovirax] 800 mg PO BID #10 tab Transmission Status: Pending to [facility] #30 Follow-Up: Call to make an appointment with your doctor for an incision check in 1-2 weeks. You will also need a 6 week post- follow up appointment. Test results from this visit will be discussed in further detail at your follow- up appointment, if applicable. Please Follow Up With: Irasema Leong MD - [phone] When: Call to make an appointment for an incision check in 2 weeks. Primary Care Physician: Celso Oreilly MD [Primary Care Provider] - Proposed Discharge Date: 03/01/19
[2019-02-26] MEDS: Cefazolin 2 GM in 0.9% Normal Saline 100 ML IV (15:02)
--- NOTE | 2019-02-26 15:46 | OP.PCM_ITS ---
Delivery Classification: Scheduled Final ELY: 02/27/19 Final ELY Source: US <20 weeks Gestational age: 39 Weeks and 6 Days biofuels engineering manager: Braxton Yan Type of Anesthesia:: Spinal Date of Procedure: 02/26/19 Pre-Operative Diagnosis: 39 6/7 wk induction. Active HSV, recurrent outbreak Post-Operative Diagnosis: Same Indications: HSV prodrome and lesions Description of Procedure: Narrative account: After the risks, benefits and alternatives of the procedure were reviewed with the patient, informed consent was obtained. The patient was taken to the Operating room with an IV running, and placed in a seated position on the operating table for placement of the spinal. Once the spinal had been administered, she was briefly frog-legged for Galeas catheter placement, and then repositioned to dorsal supine position with leftward displacement of the uterus, and prepped and draped in the usual sterile fashion. Once the spinal was deemed adequate, a Pfannenstiel skin incision was created using the knife . The incision was carried down to the rectus fascia using the knife. The fascia was nicked in the midline. The fascial incision was extended bilaterally using curved Goodson scissors. The superior aspect of the fascial incision was grasped with Jarrell clamps and tented up and the underlying rectus abdominal muscles were dissected free. In a similar manner, the inferior aspect of the facial incision was grasped with Jarrell clamps tented up and the underlying rectus abdominal muscles were dissected free. The rectus abdominis muscles were in the midline and the peritoneum was identified and entered by blunt dissection high in the incision. The peritoneum was stretched laterally and a bladder blade was inserted. A bladder flap was created along the lower uterine segment with Metzenbaum scissors . The uterine incision was then created using Metzenbaum scissors. The operators fingertips were used to extend the uterine incision by blunt dissection in a caudad- cephalad orientation . Clear fluid was noted at amniotomy. The vertex was then delivered atraumatically through the incision. The OP and nares were bulb suctioned on the abdomen. The shoulders delivered easily . The cord clamped x two and cut. And the was handed off to the nurse awaiting delivery after briefly showing her to her parents. The baby had a spontaneous, vigorous cry. The placenta was then delivered. The uterus was exteriorized and cleared of clots and debris . The uterine incision was repaired with 1 Vicryl in a running locked fashion. A second imbricating layer was then placed, using 1 Monocryl in running nonlocked fashion. Bovie cautery was used to treat any bleeding areas . Horizontal mattress stitches of 1 vicryl used as needed for hemostasis. Excellent hemostasis was noted. At this point the uterus was returned to the abdominal cavity. The gutters were cleared of clots and debris and the incision at the uterus was inspected. Hernesto was applied along the entire incision for continued hemostasis. Excellent hemostasis was noted. The peritoneal edges were reapproximated in the midline with a series of interrupted vertical mattress stitches of 1 Vicryl. Excellent hemostasis was noted at the subfascial space. The fascia was closed in a running nonlocked fashion with a Stratofix. The Subcutaneous fatty tissue was Bovie cauterized as needed for hemostasis. Surgicell powder was dusted at this layer to prevent seroma formation and for hemostasis. This layer was then reapproximated in a single layer closure of running 3-0 Vicryl to eliminate space. The skin edges were closed in a Subcuticular stitch of 4-0 Monocryl. The incision was cleansed. Cavilon, Steristrips, and Mepilex dressing were applied to the skin . The patient was then transferred to the recovery room bed in stable condition after tolerating the procedure well. Sponge, lap, needle and instrument counts correct times two. Medications given preop and intraoperatively included: Ancef 2 gm IV given contact centre supervisor to the operating room. The patient also received Pitocin given IV after cord clamp, and Toradol 30 mg IV times one. For a complete listing of medications given preop and intraoperatively, please see the anesthesia record. Amniotic Membrane Rupture Type: Artificial Amniotic Fluid Description: Clear Placenta Disposition: [facility] Drain: Galeas to straight drain Cord Entanglement: None Esitmated Blood Loss (ml): 800 Infant Gender: Female - 7# 13 oz (1 minute): 8 (5 minute): 9 Delayed cord clamping: No Antibiotic Given: Ancef 2 grams IV x1 Pt instructed on risks of surgery: Bleeding, Infection, Injury to surrounding structure(s) including bowel and bladder Complications: None - Admit VTE Documentation VTE Present on Admission: No VTE Mechan Device Prophylaxis: SCD's VTE Pharm Prophylaxis ordered?: No
[2019-02-26] MEDS: Lactated Ringers 1,000 ML 100 ML IV (16:20)
[2019-02-26] MEDS: Oxytocin 30 units/NS 500 ml 30 UNITS/500 ML IV.SOLN 167 UNITS IV (16:20)
[2019-02-26] MEDS: proCHLORPERazine 10 MG/2 ML Vial IV (18:30)
[2019-02-26] MEDS: Acetaminophen 500 MG Tablet 1000 MG PO (18:45)
[2019-02-26] MEDS: Nalbuphine 10 MG/ML Ampul 5 MG IV (19:18)
[2019-02-26] MEDS: Ketorolac 30 MG/ML Syringe IV (21:13)
[2019-02-26] MEDS: Acyclovir 800 MG Tablet PO (21:14)
[2019-02-26] MEDS: Ondansetron 4 MG/2 ML Vial IV (21:42)
[2019-02-27] VITALS (13 sets, daily range): BP systolic 94–124; BP diastolic 50–72; PULSE 62–96; RESP 14–18; TEMP 36.4–36.8; O2SAT 98–100
[2019-02-27] MEDS: Ketorolac 30 MG/ML Syringe IV ×4 (03:28→21:22)
[2019-02-27] MEDS: Ondansetron 4 MG/2 ML Vial IV (03:34)
[2019-02-27] MEDS: Lactated Ringers 1,000 ML 100 ML IV (05:48)
[2019-02-27 06:22] LABS: Hematocrit 37.5 % (37-47); Hemoglobin 12.1 g/dL (12.0-15.0); Mean Corp Hgb Conc 32.3 g/dL (32-36); Mean Corpuscular Hgb 29.7 pg (27.0-32.0); Mean Corpuscular Volume 92.1 fL (81-99); Mean Platelet Vol. 12.2 fl (6.2-12.0); Platelet Count 91 K/mm3 (150-450); RBC Distribution Width CV 13.2 % (11.6-14.6); RBC Distribution Width SD 44.6 fl (35.1-43.9); Red Blood Count 4.07 M/mm3 (4.2-5.4); White Blood Count 14.3 K/mm3 (4.4-11.0)
[2019-02-27] MEDS: Acyclovir 800 MG Tablet PO ×3 (06:43→21:36)
[2019-02-27] MEDS: Acetaminophen 500 MG Tablet 1000 MG PO ×2 (07:35→17:42)
--- NOTE | 2019-02-27 07:49 | PCM.PN.OB ---
Subjective: POD#1 Primary C/S at 39 6/7 wk EGA Active , recurrent HSV doing OK. baby is nursing well. Painful at perineum. Pain control otherwise OK. IV in place. SCDs off. Mcgarry in place. Clear pale yellow urine noted. Objective: Sitting up in bed, semi-recumbent and nursing baby. - Physical Exam General: Alert, Oriented x3, Cooperative, No apparent distress HEENT: Atraumatic, EOMI Neck: Supple Abdomen: Soft - Fundus firm minimally tender at 1-2 cm inferior to umbilicus Skin: Incision - Mepilex dressing CDI. Spot of old dischg noted at L side, marked and no extension Less than 1 cm diameter Neurological: Cranial nerves II-XII grossly intact Psych/Mental Status: Normal Affect Vital Signs Temp Pulse Resp BP Pulse Ox 98.2 F 73 18 107/66 99 02/27/19 05:00 02/27/19 05:00 02/27/19 06:00 02/27/19 05:00 02/27/19 06:00 Oxygen Delivery Method Room Air Weight: 84.822 kg Body Mass Index (BMI) 32.1 Intake and Output for Last 24 Hours 02/25/19 02/26/19 02/27/19 23:59 23:59 23:59 Intake Total 3174.17 / 3174.17 1150 / 1150 Output Total 450 / 450 1900 / 1900 Balance 2724.17 / 2724.17 -750 / -750 Laboratory Tests Past 24 Hrs 02/26/19 02/26/19 02/27/19 10:35 10:35 06:00 WBC 11.5 H 14.3 H RBC 4.29 4.07 L Hgb 12.6 12.1 Hct 38.7 37.5 MCV 90.2 92.1 MCH 29.4 29.7 MCHC 32.6 32.3 RDW Std Deviation 43.8 44.6 H RDW Coeff of Julien 13.4 13.2 Plt Count 110 L 91 L MPV 12.2 H 12.2 H Immature Gran % (Auto) 1.000 H Neut % (Auto) 79.4 H Lymph % (Auto) 11.7 L [place] % (Auto) 6.9 Eos % (Auto) 0.8 Baso % (Auto) 0.2 Absolute Neuts (auto) 9.2 H Absolute Lymphs (auto) 1.35 Nucleated RBC % 0 Blood Type A POSITIVE Antibody Screen NEGATIVE Medical Necessity - Tobacco Use Smoking Status: Former smoker Assessment/Plan 39 6/7 wk planned induction to primary C/S 2/2 active HSV Stable postop. Hgb WNL. AVSS. Inc diet and activity as tolerated. Begin po meds. Encouraged to ask for stool softener bid. MOM also ordered prn use . D/C mcgarry for voiding trial later today. S/L IV for continued toradol. Thrombocytopenia repeat CBC AM POD#2 HSV, recurrent genital Dermoplast prn Acyclovir 800 mg po bid Continue routine postop care Hoping for dischg POD#2 Note for off work for , Aris. for 3 d for childcare and assist patient.
--- NOTE | 2019-02-27 08:05 | PCM.WORK.EX ---
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
[2019-02-27] MEDS: Senna/Docusate Sodium 1 Tablet PO (08:19)
[2019-02-27] MEDS: Prenatal Vits Tablet 1 TABLET PO (10:08)
--- NOTE | 2019-02-27 12:48 | PCM.WORK.EX ---
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
[2019-02-27] MEDS: Magnesium Hydroxide 30 ML UDC 15 ML PO ×2 (14:37→17:49)
[2019-02-28 02:00] VITALS: BP 96/53; PULSE 75; RESP 16; TEMP 36.1
[2019-02-28] MEDS: Acetaminophen 500 MG Tablet 1000 MG PO (02:05)
[2019-02-28] MEDS: Ketorolac 30 MG/ML Syringe IV (03:20)
[2019-02-28 05:31] LABS: Hematocrit 34.2 % (37-47); Hemoglobin 11.1 g/dL (12.0-15.0); Mean Corp Hgb Conc 32.5 g/dL (32-36); Mean Corpuscular Hgb 29.6 pg (27.0-32.0); Mean Corpuscular Volume 91.2 fL (81-99); Platelet Count 96 K/mm3 (150-450); RBC Distribution Width CV 13.5 % (11.6-14.6); Red Blood Count 3.75 M/mm3 (4.2-5.4); White Blood Count 11.4 K/mm3 (4.4-11.0)
[2019-02-28] MEDS: Acyclovir 800 MG Tablet PO (05:32)
[2019-02-28] MEDS: oxyCODONE 5 MG Tablet PO (08:03)
[2019-02-28] MEDS: Senna/Docusate Sodium 1 Tablet PO (08:03)
[2019-02-28] MEDS: Prenatal Vits Tablet 1 TABLET PO (08:04)
--- NOTE | 2019-02-28 08:20 | PCM.PN.OB ---
Subjective: POD#2 Primary C/S at 39 6/7 wk EGA Active, recurrent HSV Doing well, denies perineal discomfort, some abdominal discomfort, moderately well controlled with PO medications; IV has been removed Objective: Sitting up in bed holding AVSS Breasts soft, filling, L nipple mildly excoriated Fundus firm, midline, u/1-2 - Physical Exam General: Alert, Oriented x3, Cooperative, No apparent distress HEENT: PERRLA, EOMI Oral: Moist Mucosa Neck: Supple Lungs: Clear to auscultation, Normal air movement Cardiovascular: Regular rate, Regular Rhythm Abdomen: Bowel Sounds Present, Soft, Non Tender, Passing Flatus Extremities: No Calf Tenderness, Edema - Mild, bilateral lower extremities Musculoskeletal: No Tenderness to Palpation of Joints or Extremities Neurological: Cranial nerves II-XII grossly intact, Deep Tendon Reflexes 2+/4 and Symmetrical Psych/Mental Status: Normal Affect, Appropriate, Alert and oriented to time, place, person, mood and affect Vital Signs Temp Pulse Resp BP Pulse Ox 97.0 F L 75 16 96/53 L 98 02/28/19 02:00 02/28/19 02:00 02/28/19 02:00 02/28/19 02:00 02/27/19 14:00 Oxygen Delivery Method Room Air Weight: 187 lb Body Mass Index (BMI) 32.1 Intake and Output for Last 24 Hours 02/26/19 02/27/19 02/28/19 23:59 23:59 23:59 Intake Total 3174.17 / 3174.17 2170 / 2170 Output Total 450 / 450 4400 / 4400 Balance 2724.17 / 2724.17 -2230 / -2230 Laboratory Tests Past 24 Hrs 02/28/19 05:20 WBC 11.4 H RBC 3.75 L Hgb 11.1 L Hct 34.2 L MCV 91.2 MCH 29.6 MCHC 32.5 RDW Std Deviation 45.0 H RDW Coeff of Julien 13.5 Plt Count 96 L MPV 12.0 Medical Necessity - Tobacco Use Smoking Status: Former smoker Assessment/Plan Assessment: 37 6/7 week planned induction to primary C/S for active HSV Stable post op; normal involution, normal course Thrombocytopenia improving HSV, recurrent genital Dermoplast PRN Acyclovir 800 mg po bid Plan: Discussed with Dr. Benekos Discharge instructions discussed Discharge home today Follow up in office in two weeks
--- NOTE | 2019-02-28 08:29 | PN_ITS ---
Progress Note Pt requesting RX for oral tab Zofran. UNABLE TO ENTER THIS IN PHARMACY MED BY [employer]... Called to inpatient pharmacy and pharmcist will order this as a work around as I am not able to enter this order as MD. RX sent to outpatient pharmacy.
--- NOTE | 2019-02-28 08:38 | DS.PCM_ITS ---
Discharge Date and Diagnosis Date of Admission: 02/26/19 - 39 6/7 wk planned induction, to primary C/S Date of Discharge: 02/28/19 - Primary C/S Active HSV outbreak. Hospital Course and Treatment Operations: None, - - Primary C section for HSV outbreak. Summary of Care Provided: The patient is a 28 year old female at 39 6/7 wk planned induction of labor. Presents for induction but with active HSV beginning day of induction. Advised re options Elected to proceed with primary C section. C Section performed without incident. Delivered a lilly female Ap 8/9. Weight 7# 13 oz. Postoperative course uneventful and requests dischg on POD#2 to home. Preoperative Hgb 12. 6 g/dl with plts at 110,000 Postoperative Hgb 11.1 g/dl. with plts arpan at 91K return to 96 K by date of dischg. Dischg instructions and meds given. RTO in 2 wk for postop incision check. - Physical Exam Vital Signs Temp Pulse Resp BP Pulse Ox 97.0 F L 75 16 96/53 L 98 02/28/19 02:00 02/28/19 02:00 02/28/19 02:00 02/28/19 02:00 02/27/19 14:00 Oxygen Delivery Method Room Air Weight: 84.822 kg Body Mass Index (BMI) 32.1 Intake and Output for Last 24 Hours 02/26/19 02/27/19 02/28/19 23:59 23:59 23:59 Intake Total 3174.17 / 3174.17 2170 / 2170 Output Total 450 / 450 4400 / 4400 Balance 2724.17 / 2724.17 -2230 / -2230 Laboratory Tests Past 24 Hrs 02/28/19 05:20 WBC 11.4 H RBC 3.75 L Hgb 11.1 L Hct 34.2 L MCV 91.2 MCH 29.6 MCHC 32.5 RDW Std Deviation 45.0 H RDW Coeff of Julien 13.5 Plt Count 96 L MPV 12.0 Discharge Diet: No Restrictions Discharge Activity: May Shower, May Take a Tub Bath May resume sexual activity in: 4-6 weeks Additional Activity Instructions:: Nothing in the vagina for 4-6 weeks. You may return to work/school in 6 weeks. Change Dressing in (Days):: 7 Remove Dressing in (days):: 7 Cleanse incision/area with: Soap & Water, Keep Dressing Clean & Dry Additional Dressing/Incision Instructions:: You may take two Tylenol by mouth every 6 hr and add EITHER two Aleve or two (200 mg each tabs) Ibuprofen . Take OxyIR for more severe pain in addition, as needed. 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 (ex: walking, stairs, etc) Home Medications: Medications to take at Discharge Vits [Prenatabs FA] 1 tablet PO DAILY 06/02/17 Cholecalciferol (Vitamin D3) [Vitamin D3] 2,000 unit PO DAILY 01/15/19 Acyclovir 400 mg PO BID 02/26/19 Acyclovir [Zovirax] 800 mg PO BID #10 tab 02/26/19 Docusate Sodium [Colace] 100 mg PO BID #30 cap 02/26/19 Naproxen [Naprosyn] 250 - 500 mg PO TID PRN PRN #30 tab 02/26/19 Oxycodone [Oxyir] 5 mg PO Q6H PRN PRN 3 Days #15 tab 02/26/19 Polyethylene Glycol 3350 [Miralax] 17 gm PO DAILY PRN #14 packet 02/26/19 Ondansetron HCl [Zofran] 4 mg PO Q6H PRN PRN #15 tab 02/28/19 Following Prescrptions Were Given to Patient: Docusate Sodium [Colace] 100 mg PO BID #30 cap Transmission Status: Received by [facility] Polyethylene Glycol 3350 [Miralax] 17 gm PO DAILY PRN #14 packet PRN Reason: Constipation Transmission Status: Received by [facility] Naproxen [Naprosyn] 250 - 500 mg PO TID PRN PRN #30 tab PRN Reason: Mild-Mod Pain (1-10/14) Transmission Status: Received by [facility] Oxycodone [Oxyir] 5 mg PO Q6H PRN PRN 3 Days #15 tab PRN Reason: Mod-Severe Pain (-03/16) Transmission Status: Received by [facility] Ondansetron HCl [Zofran] 4 mg PO Q6H PRN PRN #15 tab PRN Reason: Nausea Transmission Status: Received by [facility] Acyclovir [Zovirax] 800 mg PO BID #10 tab Transmission Status: Received by [facility] Primary Care Physician: Celso Oreilly MD [Primary Care Provider] - Please Follow Up With: Irasema Leong MD - [phone] When: Call to make an appointment for an incision check in 2 weeks. Medical Necessity - Tobacco Use Smoking Status: Former smoker Meaningful Use Info Meaningful Use Diagnoses (Choose all that apply): None applicable
[2019-02-28] MEDS: Ondansetron ODT 4 MG Tablet PO (08:54)
[2019-02-28 09:10] VITALS: BP 106/62; PULSE 65; RESP 16; TEMP 36.1
--- NOTE | 2019-02-28 14:46 | CASEMGMT ---
Addendum entered and electronically signed by Saundra Kennedy 02/28/19 14:52: For clarification, Carrol Beauchamp typed in error. The baby's name is Carrol Henning. GALILEO Espinosa, [employer]YWOOD STOCK GRADER Original Note: Social Work Brief Assessment - Labor and Delivery Unit Patient Address: [facility] [address] , [place] [id number] Phone number: [phone] Date of Referral/Notification: 02/27/2019 Time of Referral: 08 Referred By: Dr. Leong Reason for Referral: mental health Date of Intervention: 02/28/2019 Time of Intervention: 1025 Informant: Medical record and mother of baby (MOB) Isa Weber History: MOB is a 28 year old female, delivered baby girl Carrol Beauchamp on 02.26.2019 via caesarean section due to active HSV outbreak. MOB is G4, P3 to 4 after delivering Carrol. care started in the first trimester and regular throughout the . Father of baby (FOB) is Aris Weber age 35, to MOB and have been together for 8 years. MOB and FOB now share 3 children, with each parent having a child with another partner. Minor children include: Herminia, age 13 (FOB?s oldest and who the FOB has shared parenting with), Malia age 9 (MOB?s oldest child, in the custody of MOB. This child had high functioning Autism), and then shared children include Sudha age 7, Myron age 18 months (born 08.12.2017), and Carrol Beauchamp (born on 02.26.2018). FOB works fulltime at [employer] on 3rd shift. 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 MOB has a high school education and is able to read, write, and to understand what is read. NO reports of substance use issues. Record indicates as a teen MOB tried marijuana, but nothing as an adult. MOB drinks alcohol socially, not during . Former tobacco smoker. Drug screen on 07.26.2018 was negative. MOB with history of Bipolar disorder, diagnosed as a teen, prescribed Seroquel which MOB took until the age of 19. MOB reports after becoming with Malia did not feel the need to take this medicine anymore and since adulthood symptoms that experienced as child have not been present. MOB denies any history of suicidal thoughts, attempts, intent. History as a teen of self injury. MOB denies any history of depression. MOB reports does have a prescription for Xanax for anxiety but reports did not take this during and not sure if will continue to take now that not , as MOB has been managing well without for the duration of the . MOB reports to talk to FOB about stressors and identifies FOB as a strong support. Denies any form of abuse in the relationship with FOB. Assessment: Met with MOB in room. Also present at onset was FOB and FOB?s mother. Both left to allow MOB some private time. MOB pleasant, cooperative, held good eye contact, mood and affect appropriate and congruent. MOB reports to have all needed supplies to care for baby at home. FOB will be off for a short time to help with transition home and MOB has her mother to help with the children when needed. MOB reports to feel to have a positive and loving salas with baby willow. MOB denies history of any depression or anxiety, but accepted resource information for home going. MOB denies any current concerns regarding mood or anxiety. MOB attentive to baby, seemed comfortable in handling the baby, and was gentle No concerns voiced b y nursing staff either regarding mother/child interactions or bonding. Plan: MOB and baby to discharge home today. MOB has been provided with with [facility] resources lists and depression packets. No further needs requested or indicated. -JOSE Sweeney, PLYWOOD STOCK GRADER
== END 2019-02-28 10:50 | disposition home or self-care (01) | DRG 540 ==
PROVIDERS: Admitting Provider Obstetrics & Gynecology; Family Provider Family Medicine; PCP Family Medicine; Visit Provider Obstetrics & Gynecology
DX: O98.32 Other infections with a predominantly sexual mode of transmission complicating childbirth (principal); A60.09 Herpesviral infection of other urogenital tract; Z3A.39 39 weeks gestation of pregnancy; Z37.0 Single live birth; O72.3 Postpartum coagulation defects; D69.6 Thrombocytopenia, unspecified
CPT/HCPCS: 59025; 59050; 85025; 85027; 86850; 86900; 86901; 99218; J7120; G0378; J2405

== ENCOUNTER 2021-08-25 10:56 | Outpatient (CLI) | payer MEDICAID, SELFPAY ==
[2021-08-30 09:21] LABS: HPV APTIMA, High Risk Negative (Negative)
== END 2021-08-25 23:59 | disposition home or self-care (01) ==
LOC: LABSPEC 11:02
PROVIDERS: PCP Family Medicine; Visit Provider Student in an Organized Health Care Education/Training Program
DX: Z12.4 Encounter for screening for malignant neoplasm of cervix (principal)
CPT/HCPCS: 87624; 88175; G0145

== ENCOUNTER → 2022-06-16 | Outpatient (CLI) | payer MEDICAID, SELFPAY ==
[2022-06-16 16:09] LABS: Hematocrit 41.1 % (37-47); Mean Corp Hgb Conc 31.6 g/dL (32-36); Mean Corpuscular Hgb 28.6 pg (27.0-32.0); Mean Corpuscular Volume 90.5 fL (81-99); Mean Platelet Vol. 11.2 fl (6.2-12.0); Platelet Count 170 K/mm3 (150-450); RBC Distribution Width CV 12.8 % (11.6-14.6); RBC Distribution Width SD 42.2 fl (35.1-43.9); Red Blood Count 4.54 M/mm3 (4.2-5.4); White Blood Count 6.5 K/mm3 (4.4-11.0)
[2022-06-16 17:09] LABS: Estradiol 91.3 pg/mL; Follicle Stimulating Hormone 3.7 mIU/mL; Luteinizing Hormone 7.9 mIU/mL; Prolactin 7.9 ng/mL; T4 Free Direct 0.86 ng/dL (0.76-1.46); Thyroid Stim Hormone (TSH) 4.04 uIU/mL (0.358-3.74)
== END | disposition home or self-care (01) ==
LOC: WOBLAB 15:53
PROVIDERS: PCP Family Medicine; Visit Provider Student in an Organized Health Care Education/Training Program
DX: N93.9 Abnormal uterine and vaginal bleeding, unspecified (principal)
CPT/HCPCS: 36415; 82670; 83001; 83002; 84146; 84439; 84443; 85027

== ENCOUNTER → 2022-07-20 | Outpatient (CLI) | payer MEDICAID, SELFPAY ==
[2022-07-20 09:41] LABS: Thyroid Stim Hormone (TSH) 3.01 uIU/mL (0.358-3.74)
== END | disposition home or self-care (01) ==
LOC: WOBLAB 08:55
PROVIDERS: PCP Family Medicine; Visit Provider Student in an Organized Health Care Education/Training Program
DX: N93.9 Abnormal uterine and vaginal bleeding, unspecified (principal); R94.6 Abnormal results of thyroid function studies
CPT/HCPCS: 36415; 84443

== ENCOUNTER 2022-12-20 09:21 | Emergency (ER) | payer OTHER, SELFPAY ==
[2022-12-20 09:22] VITALS: BP 115/68; PULSE 82; RESP 16; TEMP 36.8; O2SAT 100; BMI 25.2
--- NOTE | 2022-12-20 09:51 | US_ITS ---
INDICATION: Clots, cramping recent medical EXAMINATION: Ultrasound US Transvaginal Non-OB TECHNIQUE: Transvaginal (for optimal evaluation of the adnexa) pelvic ultrasound was performed. Grayscale, spectral waveform, and color flow Doppler evaluation of the adnexa. COMPARISON: No prior examinations are available for comparison. FINDINGS: UTERUS: Anteverted. The uterus measures 9.5 x 6.2 x 4.2 cm. There is no uterine mass. The endometrial stripe measures 13 mm in AP diameter which is within normal limits. RIGHT OVARY: 2.2 x 1.7 x 1.3 cm. There is a 1.2 cm follicle in the right ovary. There is normal arterial inflow and venous outflow present in the right ovary. LEFT OVARY: 3.5 x 2.1 x 1.9 cm.. There is a small cyst/prominent follicle in the left ovary measuring 1.9 cm. There is normal arterial inflow and venous outflow present in the left ovary. FREE FLUID: None. US/Transvaginal Non- IMPRESSION: Essentially unremarkable examination. Electronically Signed: Genaro Arevalo MD at 12:22 EDT ,
--- NOTE | 2022-12-20 09:51 | ED.VIS.FEGU ---
HPI HPI - Female History of Present Illness Chief Complaint: Vag Bleeding Informant: patient Narrative Narrative: Patient presents with vaginal bleeding and cramping. She had a medical on the . After that she had large clots for several days. She does not specifically recall tissue but certainly that could have been involved. She had cramping. But that decreased over about a week and a half. Now her last for 5 days she has had increased bleeding again with some clots. She is not getting lightheaded or dizzy. She does get cramping. She has had 4 births. She has had prior C-sections. No bleeding abnormalities. [facility] Medical History Bipolar disorder HSV (herpes simplex virus) anogenital infection Home Medications vits,calcium no.78-iron fumarate-folic acid 29 mg-1 mg tablet (Prenatabs FA) 1 tab PO DAILY vitamin 06/02/17 [History Last Taken 02/25/19 09:00] cholecalciferol (vitamin D3) 50 mcg (2,000 unit) capsule 2,000 unit PO DAILY 01/15/19 [History Last Taken Unknown] acyclovir 400 mg tablet 400 mg PO BID hsv 02/26/19 [History Last Taken 02/26/19 06:30] acyclovir 800 mg tablet 800 mg PO BID #10 tabs 02/26/19 [Rx Last Taken Unknown] docusate sodium 100 mg capsule 100 mg PO BID #30 caps 02/26/19 [Rx Last Taken Unknown] polyethylene glycol 3350 17 gram oral powder packet 17 gm PO DAILY PRN Constipation #14 packets 02/26/19 [Rx Last Taken Unknown] ondansetron HCl 4 mg tablet 4 mg PO Q6H PRN PRN Nausea #15 tabs 02/28/19 [Rx Last Taken Unknown] naproxen 500 mg tablet 500 mg PO BID #10 tabs 12/20/22 [Rx Last Taken Unknown] Allergy/AdvReac Type Severity Reaction Status Date / Time No Known Allergies Allergy Verified 02/26/19 08:37 Social History Smoking Status: Former smoker ROS ROS ED ROS Narrative A complete review of systems was performed and is negative except as documented in the history of present illness. Some specific details below. Constitutional: No recent fevers or chills. EYE: No visual complaints or pain. ENT: No difficulty swallowing. No swelling. No pain. CV: No chest pain or palpitations. Respiratory: No dyspnea. No hemoptysis. No difficulty taking breaths. GI: No nausea vomiting trouble eating drinking or blood in the stool. No diarrhea. : See history of present illness. Musculoskeletal: No recent trauma. No pains. Skin: No rash. Nondiaphoretic. Neuro: No weakness or numbness. Endocrine: No polyuria or polydipsia. EXAM Physical Exam Narrative Exam Narrative: CONSTITUTIONAL: Patient is nontoxic in appearance. The patient looks comfortable. She is pale. HEENT: No notable trauma. Mucous membranes moist. No sinus tenderness. No indication of pain with swallowing. EYES: No conjunctival injection. No pallor. CARDIOVASCULAR: Regular rate. Regular rhythm. No notable murmur. No JVD. RESPIRATORY: No respiratory distress. Breathing is unlabored. No wheezes. No rhonchi. No rales. No pain with a deep breath. GASTROINTESTINAL: Not distended. Bowel sounds are normal. No tenderness. No guarding. No rebound. No palpable mass. No bruit. Overall her abdomen is actually benign. GENITOURINARY: No tenderness over the bladder. No CVA tenderness. MUSCULOSKELETAL: Atraumatic. No peripheral edema. No cord. No tenderness along the deep venous system. No asymmetry. NEUROLOGICAL: Patient is alert and appropriate. No focal deficit noted. SKIN: No noted rashes. No diaphoresis or pallor. PSYCHIATRIC: Patient is calm. Mood is appropriate. Const Vital Signs: 12/20/22 09:22 Temperature 98.2 F Temperature Source Temporal Pulse Rate 82 Respiratory Rate 16 Blood Pressure 115/68 Blood Pressure Mean 83 Pulse Ox 100 Oxygen Delivery Method Room Air MDM MDM MDM Narrative Medical decision making narrative: Patient's CBC is actually normal including her platelets. Her hemoglobin has not dropped to an abnormal level. Her quantitative beta hCG is quite low at 35. Patient's ultrasound is essentially read as normal. No evidence of retained products. I rechecked the patient. She is doing better now. I am wondering if she may have even had some retained products that she passed just in the last few days had some bleeding and is now improving. I will get her on Naprosyn for 5 days. We discussed reasons to return and follow-up. Lab Data Attestation: I reviewed the patient's lab results. Labs: Laboratory Results - last 24 hr 12/20/22 09:58 WBC 7.4 RBC 4.55 Hgb 13.6 Hct 42.6 MCV 93.6 MCH 29.9 MCHC 31.9 L RDW Std Deviation 45.1 H RDW Coeff of Julien 13.2 Plt Count 197 MPV 10.8 Immature Gran % (Auto) 0.300 Neut % (Auto) 64.5 Lymph % (Auto) 26.5 Willacy % (Auto) 7.3 Eos % (Auto) 1.1 Baso % (Auto) 0.3 Absolute Neuts (auto) 4.8 Absolute Lymphs (auto) 1.95 Nucleated RBC % 0 HCG, Quant 35 H Radiography Diagnostic Testing: Clinical Impression(s) from Imaging Studies Transvaginal US 12/20/22 09:51 IMPRESSION: Essentially unremarkable examination. Electronically Signed: Genaro Arevalo MD at 12:22 EDT , Discharge Plan Triage Chief Complaint: Vag Bleeding ED Provider: Shola Keane Dx/Rx/DC Orders Clinical Impression: Status post drug-induced , Vaginal bleeding Instructions: Understanding Uterine Bleeding Prescriptions: New naproxen 500 mg tablet 500 mg PO BID Qty: 10 0RF No Action vit,[id number] [Prenatabs FA] 1 TABLET tablet 1 tab PO DAILY cholecalciferol (vitamin D3) 2,000 UNIT capsule 2,000 unit PO DAILY acyclovir 400 MG tablet 400 mg PO BID Patient Comments: TAKE 1 TABLET BY MOUTH TWICE DAILY polyethylene glycol 3350 17 GM packet 17 gm PO DAILY PRN (Reason: Constipation) Qty: 14 0RF docusate sodium 100 MG capsule 100 mg PO BID Qty: 30 0RF Rx Instructions: 1 po bid to prevent constipation. acyclovir 800 MG tablet 800 mg PO BID Qty: 10 0RF ondansetron HCl 4 MG tablet 4 mg PO Q6H PRN PRN (Reason: Nausea) Qty: 15 0RF Rx Instructions: 1 po q 6 hr prn N/V Primary Care Provider: Care Physician,No Primary Referrals: Celso Oreilly MD [Non-Staff] - Activity Restrictions/Additional Instructions: Follow-up with your [employer] physician or referral as above. Disposition Disposition: Home, Self Care
[2022-12-20 10:12] LABS: Absolute Lymphocyte Count 1.95 X10^3/uL (0.83-4.51); Absolute Neutrophil Count 4.8 X10^3/uL (2.0-7.7); Basophil# 0.02 X10^3/uL; Basophil% 0.3 % (0-1); Eosinophil# 0.08 X10^3/uL; Eosinophils% 1.1 % (0-5); Hematocrit 42.6 % (37-47); Hemoglobin 13.6 g/dL (12.0-15.0); Lymphocyte # 1.95 X10^3/ul (0.83-4.51); Lymphocyte % 26.5 % (19-41); Mean Corp Hgb Conc 31.9 g/dL (32-36); Mean Corpuscular Hgb 29.9 pg (27.0-32.0); Mean Corpuscular Volume 93.6 fL (81-99); Mean Platelet Vol. 10.8 fl (6.2-12.0); Monocyte# 0.54 X10^3/uL; Monocyte% 7.3 % (0-10); NRBC Flagged by Analyzer 0 % (0-5); Neutrophil # 4.76 X10^3/uL (2.7-7.7); Neutrophil % 64.5 % (47-70); Platelet Count 197 K/mm3 (150-450); RBC Distribution Width CV 13.2 % (11.6-14.6); RBC Distribution Width SD 45.1 fl (35.1-43.9); Red Blood Count 4.55 M/mm3 (4.2-5.4); White Blood Count 7.4 K/mm3 (4.4-11.0)
[2022-12-20 10:23] LABS: hCG Titer Quant., Serum 35 mIU/mL (1-3)
[2022-12-20 13:41] VITALS: BP 118/77; PULSE 74; RESP 16; O2SAT 99
== END 2022-12-20 13:42 | disposition home or self-care (01) ==
PROVIDERS: Emergency Provider Emergency Medicine; Visit Provider Emergency Medicine
DX: N93.9 Abnormal uterine and vaginal bleeding, unspecified (principal); Z87.891 Personal history of nicotine dependence; Z98.890 Other specified postprocedural states
CPT/HCPCS: 76830; 84702; 85025; 99283

== ENCOUNTER → 2023-02-18 | Outpatient (CLI) | payer MEDICAID, SELFPAY ==
[2023-02-18 10:26] LABS: Absolute Neutrophil Count 6.7 X10^3/uL (2.0-7.7); Basophil# 0.01 X10^3/uL; Basophil% 0.1 % (0-1); Eosinophil# 0.05 X10^3/uL; Eosinophils% 0.6 % (0-5); Hemoglobin 13.5 g/dL (12.0-15.0); Lymphocyte % 16.9 % (19-41); Mean Corp Hgb Conc 32.1 g/dL (32-36); Mean Corpuscular Hgb 29.9 pg (27.0-32.0); Mean Corpuscular Volume 92.9 fL (81-99); Mean Platelet Vol. 10.7 fl (6.2-12.0); Monocyte# 0.61 X10^3/uL; Monocyte% 6.9 % (0-10); NRBC Flagged by Analyzer 0 % (0-5); Neutrophil # 6.67 X10^3/uL (2.7-7.7); Neutrophil % 75.2 % (47-70); Platelet Count 161 K/mm3 (150-450); RBC Distribution Width CV 12.2 % (11.6-14.6); RBC Distribution Width SD 42.1 fl (35.1-43.9); Red Blood Count 4.52 M/mm3 (4.2-5.4); White Blood Count 8.9 K/mm3 (4.4-11.0)
[2023-02-18 12:00] LABS: HIV - WCH Non-Reactive (Nonreactive); Hepatitis B Surface Antigen Non-Reactive (Nonreactive); Hepatitis C Antibody Non-Reactive (Nonreactive); Rubella IgG Reactive (Nonreactive); Syphilis Antibodies Non-reactive
[2023-02-21 07:07] LABS: Chlamydia By Nucleic Acid AMP Negative (Negative); Gonococcus By Nucleic Acid AMP Negative (Negative)
== END | disposition home or self-care (01) ==
PROVIDERS: Referring Provider Obstetrics & Gynecology; Visit Provider Obstetrics & Gynecology
DX: Z34.90 Encounter for supervision of normal pregnancy, unspecified, unspecified trimester (principal); Z3A.00 Weeks of gestation of pregnancy not specified
CPT/HCPCS: 36415; 85025; 86703; 86762; 86780; 86803; 86850; 86900; 86901; 87086; 87088; 87340; 87491; 87591

== ENCOUNTER → 2023-07-07 | Outpatient (CLI) | payer MEDICAID, SELFPAY ==
[2023-07-07 10:38] LABS: Absolute Lymphocyte Count 1.26 X10^3/uL (0.83-4.51); Basophil# 0.02 X10^3/uL; Basophil% 0.2 % (0-1); Eosinophil# 0.04 X10^3/uL; Eosinophils% 0.4 % (0-5); Hematocrit 39.4 % (37-47); Hemoglobin 12.6 g/dL (12.0-15.0); Lymphocyte # 1.26 X10^3/ul (0.83-4.51); Lymphocyte % 14.1 % (19-41); Mean Corpuscular Hgb 30.4 pg (27.0-32.0); Mean Corpuscular Volume 95.2 fL (81-99); Mean Platelet Vol. 11.5 fl (6.2-12.0); Monocyte# 0.57 X10^3/uL; Monocyte% 6.4 % (0-10); NRBC Flagged by Analyzer 0 % (0-5); Neutrophil # 7.01 X10^3/uL (2.7-7.7); Neutrophil % 78.3 % (47-70); Platelet Count 120 K/mm3 (150-450); RBC Distribution Width CV 12.8 % (11.6-14.6); RBC Distribution Width SD 44.4 fl (35.1-43.9); Red Blood Count 4.14 M/mm3 (4.2-5.4)
[2023-07-07 10:52] LABS: Glucose Challenge Gest 1H 50g 84 mg/dL (70-140)
[2023-07-07 11:28] LABS: HIV - WCH Non-Reactive (Nonreactive); Syphilis Antibodies Non-reactive
== END | disposition home or self-care (01) ==
LOC: LAB 10:03
PROVIDERS: Visit Provider Obstetrics & Gynecology
DX: O09.90 Supervision of high risk pregnancy, unspecified, unspecified trimester (principal); Z3A.00 Weeks of gestation of pregnancy not specified
CPT/HCPCS: 36415; 82950; 85025; 86703; 86780

== ENCOUNTER → 2023-09-01 | Outpatient (CLI) | payer MEDICAID, SELFPAY ==
[2023-09-01 12:47] LABS: Group B Strep DNA By PCR Negative (Negative); Internal Control PASS; Probe Check PASS; Specimen Processing Control PASS
== END | disposition home or self-care (01) ==
PROVIDERS: Referring Provider Advanced Practice Midwife; Visit Provider Advanced Practice Midwife
DX: Z34.90 Encounter for supervision of normal pregnancy, unspecified, unspecified trimester (principal)
CPT/HCPCS: 87081; 87653

== ENCOUNTER 2023-09-20 10:05 | Inpatient (IN) | payer MEDICAID, SELFPAY ==
[2023-09-20] VITALS (26 sets, daily range): BP systolic 94–116; BP diastolic 55–91; PULSE 64–78; RESP 10–23; TEMP 36.3–36.8; O2SAT 97–100; BMI 30.8
[2023-09-20] MEDS: Acetaminophen 500 MG Tablet 1000 MG PO ×3 (10:29→22:24)
[2023-09-20] MEDS: Lactated Ringers 1,000 ML 999 ML IV (10:32)
[2023-09-20 10:51] LABS: Absolute Lymphocyte Count 1.44 X10^3/uL (0.83-4.51); Absolute Neutrophil Count 7.5 X10^3/uL (2.0-7.7); Basophil# 0.02 X10^3/uL; Basophil% 0.2 % (0-1); Eosinophil# 0.06 X10^3/uL; Eosinophils% 0.6 % (0-5); Hematocrit 38.8 % (37-47); Hemoglobin 12.6 g/dL (12.0-15.0); Lymphocyte # 1.44 X10^3/ul (0.83-4.51); Lymphocyte % 14.9 % (19-41); Mean Corp Hgb Conc 32.5 g/dL (32-36); Mean Corpuscular Hgb 29.4 pg (27.0-32.0); Mean Corpuscular Volume 90.4 fL (81-99); Mean Platelet Vol. 12.2 fl (6.2-12.0); Monocyte# 0.54 X10^3/uL; Monocyte% 5.6 % (0-10); NRBC Flagged by Analyzer 0 % (0-5); Neutrophil # 7.53 X10^3/uL (2.7-7.7); Platelet Count 112 K/mm3 (150-450); RBC Distribution Width CV 13.4 % (11.6-14.6); RBC Distribution Width SD 43.6 fl (35.1-43.9); Red Blood Count 4.29 M/mm3 (4.2-5.4); White Blood Count 9.7 K/mm3 (4.4-11.0)
[2023-09-20 11:24] LABS: Syphilis Antibodies Non-reactive
[2023-09-20] MEDS: Lactated Ringers 1,000 ML 100 ML IV ×2 (11:39→17:10)
[2023-09-20] MEDS: Sodium Citrate/Citric Acid 30 ML UDC PO (11:58)
[2023-09-20 12:03] LABS: Amphetamine Urine VISTA NEGATIVE (<1000 ng/mL); Barbiturate Urine VISTA NEGATIVE (< 200 ng/mL); Benzodiazepine Urine VISTA NEGATIVE (< 200 ng/mL); Cocaine Urine VISTA NEGATIVE (< 300 ng/mL); Ecstacy Urine VISTA NEGATIVE (< 500 ng/mL); Methadone Urine VISTA NEGATIVE (< 300 ng/mL); PCP Urine VISTA NEGATIVE (< 25 ng/mL); THC Urine VISTA NEGATIVE (< 50 ng/mL); Vista UDS pH Range 6
--- NOTE | 2023-09-20 12:04 | HP.PCM.OB_ITS ---
HPI - General General Date of Admission: 09/20/23 HPI Narrative ROB HENRY, is a 33 y/o @ 39 weeks 1 day who presents to L&D for a repeat section Maternal Data Information ELY Calculator Estimated Delivery Date Method Current WG Current Estimate 09/26/23 LMP (Certain) 39w 1d PFS PFS Medical History (Updated 09/20/23 @ 11:03 by Tanner Akins) Bipolar disorder Family history of autism Family history of hearing loss at age younger than 7 years H/O abnormal cervical Papanicolaou smear HSV (herpes simplex virus) anogenital infection Psychiatric disorder (spontaneous vaginal delivery) Home Medications vits,calcium no.78-iron fumarate-folic acid 29 mg-1 mg tablet (Prenatabs FA) 1 tab PO DAILY vitamin 06/02/17 [History Last Taken 09/19/23 12:00 1 TAB] L.acidophilus-L.plantarum-L.rhamnosus 1 billion cell capsule,delay rel (Probiotic Pearls Women's) cap PO 02/12/23 [History Last Taken 09/19/23 12:00 1 cap] cholecalciferol (vitamin D3) 50 mcg (2,000 unit) capsule 5,000 unit PO DAILY 02/12/23 [History Last Taken 09/19/23 12:00 5,000 unit] magnesium glycinate 100 mg tablet 200 mg PO BID 02/12/23 [History Last Taken 09/19/23 12:00 100 mg] acyclovir 400 mg tablet 400 mg PO TID hsv 10 days #30 tabs 05/19/23 [Rx Last Taken Unknown] valacyclovir 500 mg tablet (Valtrex) 500 mg PO DAILY HSV #30 tabs 08/04/23 [Rx Last Taken 09/20/23 08:00 500 mg] Allergy/AdvReac Type Severity Reaction Status Date / Time No Known Allergies Allergy Verified 09/20/23 10:34 Family History Son Schizophrenia in children Surgical History (Updated 09/14/23 @ 10:[address] Danelle Flores MD) H/O section Social History adopted: No household members: significant other and children number of children: 3 current occupational status: unemployed pets and animals: No history of recent travel: Yes ([place] ) out of state: Yes out of country: No sexually active: Yes Smoking Status: Former smoker alcohol intake: current alcohol intake frequency: holidays/special occasions only details: not while substance use type: marijuana and other details: medical marijuana card not used since well-balanced diet: daily or most days caffeine: Yes Type: coffee Number of servings: 1 eating out: rarely or never during the past year weight has: remained stable what type of physical activity do you participate in: weight training frequency: 5-6 times per week duration: > 90 minutes/day uday/temple: None seatbelt use: always do you feel safe at home: Yes additional social history: RELL- Rosalio History 5 Elective abortions Hx Para 4 Spontaneous abortions Hx # Term Pregnancies Ectopic pregnancies Hx # Pregnancies Multiple births # of living children 4 Past Pregnancies Del. Date Name GA/Weeks Outcome Route Bth Weight Infant Gen Labor Lgth Anesthesia Del Locatn Provider FOB 07/26/10 Malia 37 live - full term 7# Male 12 epidur al [facility] Benekos Caden Martina 11/20/11 Sudha 39 live - full term 6#3oz Female epidu ral [facility] Benekos Aris Gus 08/12/17 Myron 40 live - full term 7#8oz Male 12 hr epidur al [facility] Benekos Aris Gus 02/26/19 [place] 40 live - full term 7#14oz Female 9 h r epidural [facility] Benekos Aris Gus Delivery Date: 07/26/10 Last Updated by: Barbara Moore Autism/Schizophrenia- lives in a halfway Delivery Date: 11/20/11 Last Updated by: Barbara Moore IOL -vaginal varicosities Delivery Date: 02/26/19 Last Updated by: Barbara Moore c section due to herpes outbreak Visit Details Expected Delivery Route/Plan rltcs with JV Plans Covid status: [] Flu vaccine: declined Tdap vaccine: declined Rhogam: na LARC form signed: declined Problem list reviewed and updated with the most current plan of care details and appropriate orders placed. Relevant counseling for the gestational age provided. Continue routine care and follow up unless otherwise noted in visit notes/problem list details OB Flowsheet Initial Weight: Not Recorded Date -?-?-?-?-?-?-?-?-?-?-?-?- EGA Weight BP Urine Prot -?-?-?-?-?-?-?-?-?-?-?-?- Glucose FHR FuHt Pres Dilation -?-?-?-?-?-?-?-?-?-?-?-?- Effaced St Visit Note 02/18/23 -?-?-?-?-?-?-?-?-?-?-?-?- 8w 4d 150 lb 4 oz 111/71 -?-?-?-?-?-?-?-?-?-?-?-?- 150 -?-?-?-?-?-?-?-?-?-?-?-?- SM- CRL 2 cm con s with LMP 03/18/23 -?-?-?-?-?-?-?-?-?-?-?-?- 12w 4d 153 lb 8 oz 112/71 Nega tive -?-?-?-?-?-?-?-?-?-?-?-?- Negative 160 -?-?-?-?-?-?-?-?-?-?-?-?- KW-no vb/ctx. no concerns today. 04/21/23 -?-?-?-?-?-?-?-?-?-?-?-?- 17w 3d 156 lb 4 oz 116/64 Nega tive -?-?-?-?-?-?-?-?-?-?-?-?- Negative 168 -?-?-?-?-?-?-?-?-?-?-?-?- MH-NO VB. Denies concerns. Normal labs. Reviewed protein intake. She is still weight lifting. 05/19/23 -?-?-?-?-?-?-?-?-?-?-?-?- 21w 3d 159 lb 106/64 -?-?--?-?-?-?-?-?-?-?-?-?- 150 -?-?-?-?-?-?-?-?-?-?-?-?- JV- concerns abo ut circumvellate placenta and weight lifting (over 150 pounds) discussed. do not recommend heavy weight lifting per acog guidelines 27 is actually the recommended weight . we also discussed tolac vs rpt cs today. lots of questions answered. 06/16/23 -?-?-?-?-?-?-?-?-?-?-?-?- 25w 3d 162 lb 108/70 -?-?-?-?-?-?-?-?-?-?-?-?- 150 26 -?-?-?-?-?-?-?-?-?-?-?-?- JV- pt now wants rpt section. no complaints 07/07/23 -?-?-?-?-?-?-?-?-?-?-?-?- 28w 3d 162 lb 8 oz 99/66 Nega tive -?-?-?-?-?-?-?-?-?-?-?-?- Negative 155 28 -?-?-?-?-?-?-?-?-?-?-?-?- JV- no lof, vagi nal bleeding, or dec fm. wants to do tdap next visit. gct pending today. 07/20/23 -?-?-?-?-?-?-?-?-?-?-?-?- 30w 2d 165 lb 99/65 Negative -?-?-?-?-?-?-?-?-?-?-?-?- Negative 145 30 -?-?-?-?-?-?-?-?-?-?-?-?- KW- no vb/lof/ct x. good fm. Declines tdap today. Valtrex will need ordered next visit. 08/04/23 -?-?-?-?-?-?-?-?-?-?-?-?- 32w 3d 167 lb 8 oz 101/67 Nega tive -?-?-?-?-?-?-?-?-?-?-?-?- Negative 145 33 -?-?-?-?-?-?-?-?-?-?-?-?- LC- no vb/ctx/lo f. good fm. larc signed. LC- no vb/ctx/lof. good fm. larc signed. had growth yesterday, results pending. 08/17/23 -?-?-?-?-?-?-?-?-?-?-?-?- 34w 2d 169 lb 6 oz 112/70 Nega tive -?-?-?-?-?-?-?-?-?-?-?-?- Negative 140 34 -?-?-?-?-?-?-?-?-?-?-?-?- SM- no vb lof go od fm no regular ctx 09/01/23 -?-?-?-?-?-?--?-?-?-?-?-?- 36w 3d 172 lb 99/65 Negative -?-?-?-?-?-?-?-?-?-?-?-?- Negative 135 37 0 -?-?-?-?-?-?-?-?-?-?-?-?- KW- no vb/lof/ct x. good fm. GBS today. 09/08/23 -?-?-?-?-?-?-?-?-?-?-?-?- 37w 3d 171 lb 115/76 -?-?-?-?-?-?-?-?-?-?-?-?- 140 38 -?-?-?-?-?-?-?-?-?-?-?-?- JV- No lof, vagi nal bleeding, or dec fm. pre-op exam 09/14/23 -?-?-?-?-?-?-?-?-?-?-?-?- 38w 2d 172 lb 6 oz 122/72 Nega tive -?-?-?-?-?-?-?-?-?-?-?-?- Negative 140 39 -?-?-?-?-?-?-?-?-?-?-?-?- SM- no vb lof go od fm n oregualr ctdx consent signed ROS Constitutional Constitutional: Denies change in weight, fatigue, fever(s), headache(s), poor appetite or weakness Eyes Eyes: Denies blurry vision, change in vision, seeing flashes or spots in vision ENT HEENT: Denies dizziness, headache(s), loss taste/smell or sore throat Cardiovascular Cardiovascular: Denies chest pain, dizziness, dyspnea, irregular heart rhythm, leg edema, palpitations, rapid heart rate or vomiting Respiratory/Chest Respiratory/Chest: Denies chest tightness, cough, dyspnea or breast pain Gastrointestinal Gastrointestinal: Denies abdominal pain, anorexia, constipation, cramping, diarrhea, hemorrhoids, vomiting or weight changes Genitourinary Genitourinary: Denies dysuria, flank pain, genital lesions, genital pain, urinary frequency or urinary urgency Musculoskeletal Musculoskeletal: Denies back pain, difficulty walking, joint pain, limited range of motion, muscle cramps or numbness Integumentary Integumentary: Denies lesions or unusual bruising Neurologic Neurologic: Denies abnormal movements, abnormal speech, dizziness, numbness, seizure-like activity or syncope Psychiatric Psychiatric: Denies anxiety, behavioral changes, change in appetite, change in libido, cognitive impairment, confusion, depression, difficulty concentrating, hallucinations or suicidal thoughts Endocrine Endocrinology: Denies excessive sweating, polydipsia or polyuria Hematologic/Lymphatic Hematologic/Lymphatic: Denies easy bleeding, easy bruising or lymphadenopathy Allergic/Immunologic Allergic/Immunologic: Denies itchy eyes, lip swelling, seasonal rhinorrhea, rhinitis, throat swelling, tongue swelling, eczemia, wheezing or asthma Vital Signs Vital Signs Vital Signs: 09/20/23 11:04 09/20/23 10:25 09/20/23 10:25 Temperature 98.3 F Temperature Source Temporal Temporal Pulse Rate 71 Respiratory Rate 16 Blood Pressure 105/64 105/64 Blood Pressure Mean 77 BP Systolic 105 BP Diastolic 64 Blood Pressure Source Monitor Blood Pressure Position Semi-Fowlers Blood Pressure Location Right Arm Pulse Ox 98 Oxygen Delivery Method Room Air 09/20/23 10:25 09/20/23 10:25 09/20/23 10:25 Temperature Temperature Source Pulse Rate 71 Respiratory Rate 16 Blood Pressure Blood Pressure Mean BP Systolic BP Diastolic Blood Pressure Source Blood Pressure Position Blood Pressure Location Pulse Ox 98 Oxygen Delivery Method 09/20/23 10:25 Temperature 98.3 F Temperature Source Pulse Rate Respiratory Rate Blood Pressure Blood Pressure Mean BP Systolic BP Diastolic Blood Pressure Source Blood Pressure Position Blood Pressure Location Pulse Ox Oxygen Delivery Method Weight Weight: 174 lb 2.643 oz Body Mass Index (BMI) 30.8 Physical Exam Const alert, oriented x3, no apparent distress and healthy appearing General Appearance: cooperative; Negative for anxious HEENT normocephalic Face and Sinus: normal facial exam Eyes EOMs intact bilaterally and no scleral icterus General Eye: normal appearance of both eyes Neck full ROM and supple Lymph Lymphatic: no lymphadenopathy noted Chest Chest: abnormal inspection of the chest Resp normal respiratory effort Effort and Inspection: able to speak in complete sentences Cardio regular rate GI soft to palpation and non-tender Inspection: gravid Palpation: soft; Negative for tender Back/Spine no CVA tenderness Extremity normal to inspection, full ROM and no clubbing, cyanosis or edema General Extremity: Negative for calf tenderness or edema Skin Lesions: no lesions Rashes: no rashes Psych mental status grossly normal Labs Labs Labs: Blood Type A POSITIVE Antibody Screen NEGATIVE Hct 38.8 % (37-47) Hgb 12.6 g/dL (12.0-15.0) Syphilis Total Ab Non-reactive Rubella IgG Antibody Reactive (Nonreactive) Hep Bs Antigen Non-Reactive (Nonreactive) Hepatitis C Antibody Non-Reactive (Nonreactive) Hepatitis C Ab (EIA) <0.1 s/co ratio (0.0-0.9) Chlamydia DNA (MAYTE) Negative (Negative) N.gonorrhoeae DNA (MAYTE) Negative (Negative) HIV 1&2 Antibody Non-Reactive (Nonreactive) Glucose 1 Hr 50 gm 84 mg/dL (70-140) Group B Strep DNA Negative (Negative) Rhogam given: No Assessment & Plan (1) Circumvallate placenta: COMMENT: several small lakes. Growth US at 32 (55%) and 36 (42%) weeks (2) Genital herpes affecting : QUALIFIERS: Trimester: second trimester Qualified Code(s): O98.312 - Other infections with a predominantly sexual mode of transmission comp licating , second trimester; A60.09 - Herpesviral infection of other urogenital tract COMMENT: plan Valtrex at 34-36 weeks (3) Supervision of high-risk : QUALIFIERS: Trimester: second trimester Qualified Code(s): O09.92 - Supervision of high risk , unspecified, second trimester COMMENT: [id number], ELY 09/25/22 boy Tato Finley, Sudha, Myron, Carrol Santamaria (4) : QUALIFIERS: Weeks of gestation: 38 weeks Qualified Code(s): Z3A.38 - 38 weeks gestation of COMMENT: GBS neg, anatomy nl, discussed genetic & carrier testing (5) H/O section: COMMENT: wants repeat section RLTCS scheduled for 09/19 with JV @ 12 (6) Bipolar disorder: (7) Family history of autism: COMMENT: eldest child PLAN: Plan After discussing the patient's diagnosis and treatment plan options, patient wishes to proceed with surgical management. I have discussed with the patient the risks, benefits, and alternatives of the procedure which include but are not limited to risks of anesthesia, bleeding, infection, possible damage to bowel, bladder, or surrounding vasculature which could lead to additional surgery to evaluate any complications. Patient agrees to procedure and wishes to proceed. ACOG/uptodate references given for additional information regarding procedure. plan is for repeat section
[2023-09-20] MEDS: Cefazolin 2 GM in 0.9% Normal Saline (100mL Bag) 100 ML IV (12:05)
--- NOTE | 2023-09-20 12:07 | DCINST_ITS ---
Discharge Instructions Diet Discharge Diet: No restrictions Activity Discharge Activity: May Not Drive (for 2 weeks or while taking narcotic pain medications.), May Shower and May Take a Tub Bath (in 7 days.) May resume sexual activity in: 4-6 weeks Weight Bearing Status: Full weight bearing Lifting Restrictions: 20 pounds Dressing / Incision Call your doctor if your incision/area has: Continuous Slow Oozing, Sudden Increased Bleeding, Increased Pain/ Swelling, Increased Redness and Foul Smelling Discharge Call your doctor if you observe: Fever of 101 or Higher and Using more than 1 pad per hour Suture Line Care: Avoid Pulling/Pushing and Avoid Pinching/Bending Cleanse incision/area with: Soap & Water and Keep Dressing Clean & Dry Follow Up Care Please Follow Up With: Brandy Fine DO When: Call [phone] to make an appointment for an incision check in 1-2 weeks. Test Results: Test results from this visit will be discussed in further detail at your follow- up appointment, if applicable. Discharge Plan Admission Admit Date/Time: 09/20/23 10:05 Primary Reason for Your Visit: repeat section Attending Provider: Brandy Fine Primary Care Provider: Care Physician,Cristina Primary Discharge Orders/Prescriptions Prescriptions: New ibuprofen 800 mg tablet 800 mg PO Q8H PRN (Reason: pain) Qty: 30 0RF Continued magnesium glycinate 100 mg tablet 200 mg PO BID Probiotic Pearls Women's 1 billion cell capsule,delayed release(DR/EC) PO acyclovir 400 mg tablet 400 mg PO TID 10 Days Qty: 30 12RF valacyclovir [Valtrex] 500 mg tablet 500 mg PO DAILY Qty: 30 5RF Prenatabs FA 1 TABLET tablet 1 tab PO DAILY cholecalciferol (vitamin D3) 50 mcg (2,000 unit) capsule 5,000 unit PO DAILY Referrals / Follow Up: Care Physician,No Primary [Primary Care Provider] - Disposition Disposition (needs filled in before D/C Order can be placed): Home, Self Care
[2023-09-20] MEDS: Oxytocin 15 Units/NS 250ml 15 UNITS/250 ML IV.SOLN 83 UNITS IV (14:00)
--- NOTE | 2023-09-20 14:21 | NURSING ---
Dr. Fournier consulted during case and in room at 1310 to evaluate appendix. No procedure performed.
[2023-09-20] MEDS: Ketorolac 30 MG/ML Syringe IV ×2 (14:29→20:03)
--- NOTE | 2023-09-20 17:26 | EX.PCM.OBRPT ---
Assessment & Plan (1) Circumvallate placenta: COMMENT: several small lakes. Growth US at 32 (55%) and 36 (42%) weeks (2) Genital herpes affecting : QUALIFIERS: Trimester: second trimester Qualified Code(s): O98.312 - Other infections with a predominantly sexual mode of transmission complicating , second trimester; A60.09 - Herpesviral infection of other urogenital tract COMMENT: plan Valtrex at 34-36 weeks (3) Supervision of high-risk : QUALIFIERS: Trimester: second trimester Qualified Code(s): O09.92 - Supervision of high risk , unspecified, second trimester COMMENT: [id number], ELY 09/25/22 boy Tato Finley, Sudha, Myron, Carrol Santamaria (4) : QUALIFIERS: Weeks of gestation: 38 weeks Qualified Code(s): Z3A.38 - 38 weeks gestation of COMMENT: GBS neg, anatomy nl, discussed genetic & carrier testing (5) H/O section: COMMENT: wants repeat section RLTCS scheduled for 09/19 with JV @ 12 (6) Bipolar disorder: (7) Family history of autism: COMMENT: eldest child Maternal Data Information ELY Calculator Estimated Delivery Date Method Current WG Current Estimate 09/26/23 LMP (Certain) 39w 1d Gestational age: 39 weeks 1 day Details Operative Information Date of Procedure: 09/20/23 Pre-Operative Diagnosis: @ 39 weeks 1 days, prior section, declines Post-Operative Diagnosis: @ 39 weeks 1 days, prior section, declines Classification: Scheduled Procedure Type: low transverse decorating instructor #1: Braxton Yan Type of Anesthesia: Spinal Anesthesiologist: Gary London Antibiotic Given: Ancef 2 grams IV x1 Estimated Blood Loss: 500cc Findings Description of Procedure: The patient is a 33 y/o @ 39 weeks 1 day who presented for repeat . Spinal anesthesia was placed without difficulty. Galeas catheter was placed. The patient was placed in the dorsal supine position with leftward tilt. Patient was prepped and draped in the normal sterile fashion. Pfannenstiel skin incision was made with the scalpel and carried through to the underlying layer of fascia with the scalpel. Fascia was nicked in the midline and the incision extended laterally. The rectus bellies were dissected off superiorly and inferiorly with out complication both sharply and bluntly. The peritoneum was entered digitally. The incision was stretched and a low transverse uterine incision was made with the scalpel. The infant's head was delivered atraumatically followed by the anterior and posterior shoulders without complication the rest of the infant delivered. The cord was clamped and cut and the infant was handed off to awaiting nurse. The placenta was delivered spontaneously immediately following and was noted to be intact and have a three-vessel cord. The uterus was exteriorized cleared of all clots and debris, and the incision was closed in a double layer closure using #1Vicryl and #1 Monocryl. The ovaries and fallopian tubes were noted to be within normal limits. The appendix was noted to appear somewhat prominent and when palpated was noted to have a firm structure in the upper middle aspect. Dr. Fournier from general surgery was called for a second opinion and looked the appendix over. It did take almost 30 minutes to wait for his arrival and during that time the hard structure had passed through the appendix. Dr. Fournier felt that the appendix looked normal. The uterus was returned to the maternal abdomen and gutters were cleared of all clots and debris. The peritoneum was closed with 3-0 Monocryl in a running fashion. Fascia was closed with 0 PDS in a running fashion. Subcutaneous tissue was copiously irrigated and the skin was closed with 3-0 Monocryl in a subcuticular fashion. Mepilex dressing was applied without complication. Patient was taken to recovery in stable condition. It was discussed with the patient that based on the clinical information obtained during this encounter, combined with her history, at this time I would recommend [ ] for future deliveries if further pregnancies are desired. Presentation: Positive for Vertex Amniotic Membrane Rupture Type: Artificial Amniotic Fluid Description: Bloody Placental Delivery Description: Expressed Placenta Disposition: [facility] Cord Vessel Description: 3 Vessels Cord Entanglement: None Infant A Gender: Male (1 minute): 9 (5 minute): 9 Delayed Cord Clamping: Yes Complications Risks of Surgery Discussed w/Patient: Bleeding, Anesthesia Risks, Infection, Need for Future C-Sections and Injury to surrounding structure(s) including bowel and bladder Complications: none Multi Select Codes Urinary/Genital Urinary/Genital CPT Codes: 62671 delivery+ Care([facility])
[2023-09-20] MEDS: 0.9% Saline Lock 10 ML Syringe IV (20:03)
[2023-09-21 00:22] VITALS: RESP 16; O2SAT 100
[2023-09-21 00:33] VITALS: BP 102/62; PULSE 67; RESP 16; TEMP 36.3; O2SAT 100
[2023-09-21] MEDS: oxyCODONE 5 MG Tablet PO ×4 (00:36→14:45)
[2023-09-21] MEDS: Ketorolac 30 MG/ML Syringe IV (02:44)
[2023-09-21] MEDS: 0.9% Saline Lock 10 ML Syringe IV (02:44)
--- NOTE | 2023-09-21 03:58 | NURSING ---
Pt states she voided in shower. Void was not measured.
[2023-09-21] MEDS: Acetaminophen 500 MG Tablet 1000 MG PO ×2 (04:35→10:32)
[2023-09-21 04:36] VITALS: BP 98/61; PULSE 54; RESP 16; TEMP 36.7; O2SAT 99
[2023-09-21 06:10] LABS: Hematocrit 34.9 % (37-47); Hemoglobin 11.2 g/dL (12.0-15.0); Mean Corp Hgb Conc 32.1 g/dL (32-36); Mean Corpuscular Hgb 29.4 pg (27.0-32.0); Mean Corpuscular Volume 91.6 fL (81-99); Mean Platelet Vol. 11.5 fl (6.2-12.0); Platelet Count 110 K/mm3 (150-450); RBC Distribution Width CV 13.5 % (11.6-14.6); RBC Distribution Width SD 44.5 fl (35.1-43.9); Red Blood Count 3.81 M/mm3 (4.2-5.4)
--- NOTE | 2023-09-21 07:15 | PN.OBGYN_ITS ---
Subjective Subjective Patient doing well without complaints. Tolerating PO. Ambulating and voiding without difficulty. Feeding well. Denies chest pain, shortness of breath, calf pain/swelling, fevers, chills, lightheadedness. Objective Data Objective Data Vital Signs: Vital Signs Temp Pulse Resp BP Pulse Ox O2 Del Method 98.1 F 54 L 16 98/61 99 Room Air 09/21/23 04:36 09/21/23 04:36 09/21/23 04:36 09/21/23 04:36 09/21/23 04:36 09/21/23 04:36 Oxygen Delivery Method Room Air Weight: 174 lb 2.643 oz Body Mass Index (BMI) 30.8 Intake & Output: Intake and Output for Last 24 Hours 09/19/23 09/20/23 09/21/23 23:59 23:59 23:59 Intake Total 2663.33 / 2663.33 Output Total 2375 / 2375 1000 / 1000 Balance 288.33 / 288.33 -1000 / -1000 Lab / Micro Data Attestation: I reviewed the patient's lab results. 09/21/23 06:02 Labs: Laboratory Results - last 24 hr 09/20/23 10:30: WBC 9.7, RBC 4.29, Hgb 12.6, Hct 38.8, MCV 90.4, MCH 29.4, MCHC 32.5, RDW Std Deviation 43.6, RDW Coeff of Julien 13.4, Plt Count 112 L, MPV 12.2 H , Immature Gran % (Auto) 0.700, Neut % (Auto) 78.0 H, Lymph % (Auto) 14.9 L, [place] % (Auto) 5.6, Eos % (Auto) 0.6, Baso % (Auto) 0.2, Absolute Neuts (auto) 7.5, Absolute Lymphs (auto) 1.44, Nucleated RBC % 0, Syphilis Total Ab Non- reactive, Blood Type A POSITIVE, Antibody Screen NEGATIVE 09/20/23 11:00: Urine Opiates Screen NEGATIVE, Urine Methadone Screen NEGATIVE, Ur Barbiturates Screen NEGATIVE, Ur Phencyclidine Scrn NEGATIVE, Ur Amphetamines Screen NEGATIVE, MDMA (Ecstasy) Screen NEGATIVE, U Benzodiazepines Scrn NEGATIVE, Urine Cocaine Screen NEGATIVE, U Cannabinoids Screen NEGATIVE, Ur Drug Screen Comment 09/21/23 06:02: WBC 12.0 H, RBC 3.81 L, Hgb 11.2 L, Hct 34.9 L, MCV 91.6, MCH 29.4, MCHC 32.1, RDW Std Deviation 44.5 H, RDW Coeff of Julien 13.5, Plt Count 110 L, MPV 11.5 ROS Constitutional Constitutional: Reports systems reviewed and no addt'l complaints, except as documented; Denies anorexia or headache(s) Cardiovascular Cardiovascular: Reports systems reviewed and no addt'l complaints, except as documented; Denies dizziness, dyspnea, nausea or tachypnea Respiratory/Chest Respiratory/Chest: Reports systems reviewed and no addt'l complaints, except as documented; Denies cough, dyspnea, shortness of breath at rest or tachypnea Gastrointestinal Gastrointestinal: Reports systems reviewed and no addt'l complaints, except as documented; Denies abdominal pain, constipation or nausea Genitourinary Genitourinary: Reports systems reviewed and no addt'l complaints, except as documented; Denies burning urination, difficulty urinating, dysuria, urinary frequency or urinary incontinence Musculoskeletal Musculoskeletal: Reports systems reviewed and no addt'l complaints, except as documented Integumentary Integumentary: Reports systems reviewed and no addt'l complaints, except as documented Neurologic Neurologic: Reports systems reviewed and no addt'l complaints, except as documented; Denies abnormal speech, dizziness or headache(s) Psychiatric Psychiatric: Reports systems reviewed and no addt'l complaints, except as documented Endocrine Endocrinology: Reports systems reviewed and no addt'l complaints, except as documented Hematologic/Lymphatic Hematologic/Lymphatic: Reports systems reviewed and no addt'l complaints, except as documented Physical Exam Const alert, oriented x3 and no apparent distress Neck full ROM Resp normal respiratory effort, normal air movement and no retractions Effort and Inspection: able to speak in complete sentences and symmetric chest movement GI soft to palpation Inspection: incision intact Bladder / Kidney Exam: bladder normal to palpation Uterus Palpation: uterus fundus firm Extremity normal to inspection and full ROM Psych mental status grossly normal, thought process normal and cooperative Assessment & Plan (1) H/O section: COMMENT: wants repeat section RLTCS scheduled for 09/19 with JV @ 12 PLAN: s/p LTCS PPD # 1 1. routine post care 2. breast feeding- support given 3. rh positive 4. rubella immune 5. Discharge home (2) Bipolar disorder: (3) Family history of autism: COMMENT: eldest child (4) delivery delivered: Charges/Coding Multi Select Codes Urinary/Genital Urinary/Genital CPT Codes: No Charge
[2023-09-21] MEDS: Ibuprofen 600 MG Tablet PO ×2 (08:47→14:45)
[2023-09-21] MEDS: Senna/Docusate Sodium 1 Tablet PO (08:48)
[2023-09-21 10:00] VITALS: BP 104/58; PULSE 60; RESP 16; TEMP 36.6; O2SAT 97
--- NOTE | 2023-09-21 11:02 | CASEMGMT ---
Social Work Assessment Labor and Delivery Unit Patient Address:[address] [place] [address] [place] [address] Phone number: [phone] Date of Referral: 09/20/23 Time of Referral:? 1540 Referred By: Brandy Fine Date of Intervention: ?09/21/23? Time of Intervention:? 1030 Reason for Referral:? Mental health Sw completed chart review and acknowledges social work consult due to maternal mental health. Sw presented to bedside and introduced self to mother of baby (SANJUANA- Isa) and father of baby (FOB- Rosalio). Sw explained sw role during hospitalization and completed psychosocial assessment. History obtained from: medical records, MOB and FOB Household composition: Currently residing in the family home is SANJUANA, REBECCA and SANJUANA's three other children (Sudha- 11, Myron- 6, and [place]- 4). SANJUANA has another child, Malia who is 13 years old and is currently placed in a residential program for bipolar and schizophrenia. SANJUANA states that she currently has shared parenting with Malia's father, but she is working with court to sign over her rights due to the current needs of Malia. SANJUANA stated that it is a confusing situation to try to explain, and she states that she does not get to see him often. Patient's parent/guardian status:?SANJUANA states that she and REBECCA met at their gym and have been together for a year. No concerns at this time with domestic violence or intimate partner violence. ? Medical History: ?SANJUANA is 33 year old female who is 5, para 4- now 5 following delivery of . SANJUANA received routine care during with [facility]. SANJUANA presented to hospital for scheduled repeat on 09/20/23. SANJUANA delivered bay at 39 weeks gestation via repeat c- section. Baby boy, named Tato Alatorre, was born weighing 6lb 14oz with apgars of 9 and 9 at one and five minutes of life, respectfully. Baby will be followed by Dr. Lin for pediatrics. SANJUANA states that she is breast feeding and it is going well so far. Educational Status:? SANJUANA graduated from high school and REBECCA obtained an associates degree. No concerns with reading, learning or comprehension. 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 Supplies:?? Parents have obtained all necessary baby supplies for baby, including: car seat, safe sleep space, clothes, diapers and wipes. SANJUANA reports to having a breast pump for home. Childcare/Caregiver(s):?SANJUANA will be the primary caregiver to baby along with REBECCA when he is not at work. Transportation:?? Both parents drive and have reliable means of transportation. No barriers at this time. Programs/Agencies Involved: ???SANJUANA is connected to insurance through [employer]. SANJUANA states that she is also receiving SNAP benefits. Children Services/Legal Issues:?No history, no issues or concerns warranting referral to be made at this time. Behavioral Health Issues: ??Mental Health History: REBECCA denies mental health history. SANJUANA states that she has been diagnosed with Bipolar and was previously prescribed xanax to help with her anxiety. SANJUANA reports that she has not been on medication for over a year, and has been managing her mental health with diet and exercise. SANJUANA denies experiencing baby blues or any symptoms after the of her other four children. ??? Substance Use History:?SANJUANA denies substance use prior to and during . SANJUANA states that she has a history of PTSD and previously had her medical marijuana card, but she has since let that lapse and has not smoked marijuana since way before becoming . ? Family History:???Parents deny family history of addiction and significant mental health diagnoses. ?? Drug Screens: MOB urine screen was negative for substances.?? Family/Social Stressors:? Parents deny any issues, concerns or stressors aside from the ongoing struggles that SANJUANA has had with her oldest child. Support Systems: SANJUANA states that REBECCA and her mother are her biggest supports. Depression/Shaken Baby/Safe Sleeping:? Tae educated parents on signs and symptoms of baby blues and depression and anxiety. FOB states that although this is his first baby he has heard those terms before. FOB states that he believes he would be able to recognize is MOB were to struggle with her mental health during this period. FOB states that he would know how to help MOB if she were to struggle. Tae educated parents on shaken baby prevention and ABCs of safe sleep. Parents express understanding. ASSESSMENT:? MOB and baby admitted following labor and delivery of . MOB acknowledges her mental health history, and states that she knows how to recognize when she is struggling and uses working out as her means of coping. MOB states that she has everything she needs for baby, and has natural supports in place. Parents were supportive to one another and both actively participated in completion of psychosocial assessment. MOB was observed providing loving and appropriate hands on care of . PLAN:? MOB and baby to be discharged when medically ready. ?No other services requested or indicated. Blanche Talley, CHIEF OPERATING ENGINEER, HYDRAULIC STRAINER OPERATOR
[2023-09-21 14:49] VITALS: BP 105/62; PULSE 60; RESP 16; TEMP 36.8; O2SAT 98
== END 2023-09-21 15:45 | disposition home or self-care (01) | DRG 540 ==
PROVIDERS: Admitting Provider Obstetrics & Gynecology; Visit Provider Obstetrics & Gynecology
PROC: 10D00Z1 Extraction of Products of Conception, Low, Open Approach (ICD-10-PCS; CPT 59514; principal; 2023-09-20 11:45)
DX: O34.211 Maternal care for low transverse scar from previous cesarean delivery (principal); O98.32 Other infections with a predominantly sexual mode of transmission complicating childbirth; A60.9 Anogenital herpesviral infection, unspecified; O43.113 Circumvallate placenta, third trimester; Z3A.39 39 weeks gestation of pregnancy; Z37.0 Single live birth; Z87.891 Personal history of nicotine dependence
CPT/HCPCS: 59025; 59050; 80307; 85025; 85027; 86780; 86850; 86900; 86901; 99221; J7120; A4216; G0378; J2405

== ENCOUNTER → 2024-01-04 | Outpatient (CLI) | payer MEDICAID, SELFPAY ==
[2024-01-04 10:44] LABS: Hematocrit 42.4 % (37-47); Hemoglobin 13.4 g/dL (12.0-15.0); Mean Corp Hgb Conc 31.6 g/dL (32-36); Mean Corpuscular Volume 91.8 fL (81-99); Mean Platelet Vol. 10.9 fl (6.2-12.0); Platelet Count 162 K/mm3 (150-450); RBC Distribution Width CV 13.7 % (11.6-14.6); RBC Distribution Width SD 46.2 fl (35.1-43.9); Red Blood Count 4.62 M/mm3 (4.2-5.4); White Blood Count 7.4 K/mm3 (4.4-11.0)
== END | disposition home or self-care (01) ==
LOC: LAB 10:17
PROVIDERS: PCP Student in an Organized Health Care Education/Training Program; Referring Provider Student in an Organized Health Care Education/Training Program; Visit Provider Student in an Organized Health Care Education/Training Program
DX: N91.2 Amenorrhea, unspecified (principal); R53.83 Other fatigue; R07.89 Other chest pain; R06.02 Shortness of breath; R00.2 Palpitations
CPT/HCPCS: 36415; 85027

== ENCOUNTER → 2024-02-08 | Outpatient (CLI) | payer MEDICAID, SELFPAY ==
[2024-02-11 07:09] LABS: Chlamydia By Nucleic Acid AMP Negative (Negative); Gonococcus By Nucleic Acid AMP Negative (Negative)
== END | disposition home or self-care (01) ==
PROVIDERS: PCP Student in an Organized Health Care Education/Training Program; Referring Provider Advanced Practice Midwife; Visit Provider Advanced Practice Midwife
DX: O09.90 Supervision of high risk pregnancy, unspecified, unspecified trimester (principal); Z3A.00 Weeks of gestation of pregnancy not specified
CPT/HCPCS: 87086; 87491; 87591

== ENCOUNTER → 2024-02-18 | Outpatient (CLI) | payer MEDICAID, SELFPAY ==
[2024-02-18 09:42] LABS: Absolute Lymphocyte Count 1.29 X10^3/uL (0.83-4.51); Absolute Neutrophil Count 4.8 X10^3/uL (2.0-7.7); Basophil# 0.01 X10^3/uL; Basophil% 0.1 % (0-1); Eosinophil# 0.07 X10^3/uL; Hematocrit 40.9 % (37-47); Hemoglobin 13.1 g/dL (12.0-15.0); Lymphocyte # 1.29 X10^3/ul (0.83-4.51); Lymphocyte % 19.3 % (19-41); Mean Corpuscular Hgb 29.4 pg (27.0-32.0); Mean Corpuscular Volume 91.9 fL (81-99); Mean Platelet Vol. 10.7 fl (6.2-12.0); Monocyte# 0.46 X10^3/uL; Monocyte% 6.9 % (0-10); NRBC Flagged by Analyzer 0 % (0-5); Neutrophil # 4.84 X10^3/uL (2.7-7.7); Neutrophil % 72.4 % (47-70); Platelet Count 146 K/mm3 (150-450); RBC Distribution Width CV 12.3 % (11.6-14.6); RBC Distribution Width SD 41.9 fl (35.1-43.9); Red Blood Count 4.45 M/mm3 (4.2-5.4); White Blood Count 6.7 K/mm3 (4.4-11.0)
[2024-02-18 15:56] LABS: HIV - WCH Non-Reactive (Nonreactive); Hepatitis B Surface Antigen Non-Reactive (Nonreactive); Hepatitis C Antibody Non-Reactive (Nonreactive); Rubella IgG Reactive (Nonreactive); Syphilis Antibodies Non-reactive
== END | disposition home or self-care (01) ==
LOC: LAB 09:07
PROVIDERS: PCP Student in an Organized Health Care Education/Training Program; Referring Provider Advanced Practice Midwife; Visit Provider Advanced Practice Midwife
DX: O09.90 Supervision of high risk pregnancy, unspecified, unspecified trimester (principal); Z3A.00 Weeks of gestation of pregnancy not specified
CPT/HCPCS: 36415; 85025; 86703; 86762; 86780; 86803; 86850; 86900; 86901; 87340

== ENCOUNTER → 2024-05-25 | Outpatient (CLI) | payer MEDICAID, SELFPAY ==
--- NOTE | 2024-05-25 09:02 | US_ITS ---
STUDY: SECOND AND THIRD TRIMESTER OBSTETRICAL ULTRASOUND - LIMITED REASON FOR EXAM: Female, 33 years old . Follow-up for right ovarian cyst. LMP: December 08, 2023. PRIOR ULTRASOUND: Comparison is made with prior study dated February 08, 2024. TECHNIQUE: Transabdominal TECHNICAL QUALITY: Adequate. FINDINGS: There is a single intrauterine fetus. The fetus is in a breech presentation. There is demonstrated cardiac activity with a heart rate of 145 bpm. There is a normal amniotic fluid volume. The largest amniotic fluid pocket measures 5.8 cm. The amniotic fluid index (TOYA) is normal. The placenta is anterior in location and is not low lying. There are Grade 1 placental changes. The cervix measures 3.6 cm cm in length. The previously seen right ovarian cyst is not seen at this time. BIOMETRY: Age by LMP: 24 weeks, 1 days. ELY by LMP: September 13, 2024. US/OB Limited (No Biometrics) IMPRESSION: The previously seen right ovarian cyst is not seen at this time. Electronically Signed: Tristan Carpio MD at 9:03 EST ,
== END | disposition home or self-care (01) ==
LOC: US 09:02
PROVIDERS: PCP Student in an Organized Health Care Education/Training Program; Referring Provider Obstetrics & Gynecology; Visit Provider Obstetrics & Gynecology
DX: O99.891 Other specified diseases and conditions complicating pregnancy (principal); O34.82 Maternal care for other abnormalities of pelvic organs, second trimester; N83.201 Unspecified ovarian cyst, right side; Z3A.00 Weeks of gestation of pregnancy not specified
CPT/HCPCS: 76815

== ENCOUNTER → 2024-06-21 | Outpatient (CLI) | payer MEDICAID, SELFPAY ==
[2024-06-21 10:56] LABS: Absolute Lymphocyte Count 1.18 X10^3/uL (0.83-4.51); Absolute Neutrophil Count 6.7 X10^3/uL (2.0-7.7); Basophil# 0.02 X10^3/uL; Basophil% 0.2 % (0-1); Eosinophil# 0.04 X10^3/uL; Eosinophils% 0.5 % (0-5); Hematocrit 40.6 % (37-47); Hemoglobin 13.1 g/dL (12.0-15.0); Lymphocyte # 1.18 X10^3/ul (0.83-4.51); Lymphocyte % 14.1 % (19-41); Mean Corp Hgb Conc 32.3 g/dL (32-36); Mean Corpuscular Volume 93.1 fL (81-99); Mean Platelet Vol. 11.2 fl (6.2-12.0); Monocyte# 0.43 X10^3/uL; Monocyte% 5.1 % (0-10); NRBC Flagged by Analyzer 0 % (0-5); Neutrophil # 6.67 X10^3/uL (2.7-7.7); Neutrophil % 79.7 % (47-70); Platelet Count 129 K/mm3 (150-450); RBC Distribution Width CV 12.7 % (11.6-14.6); RBC Distribution Width SD 43.4 fl (35.1-43.9); Red Blood Count 4.36 M/mm3 (4.2-5.4); White Blood Count 8.4 K/mm3 (4.4-11.0)
[2024-06-21 10:58] LABS: Glucose Challenge Gest 1H 50g 86 mg/dL (70-140)
[2024-06-21 11:33] LABS: HIV - WCH Non-Reactive (Nonreactive); Syphilis Antibodies Non-reactive
== END | disposition home or self-care (01) ==
PROVIDERS: Obstetrics & Gynecology; PCP Student in an Organized Health Care Education/Training Program; Referring Provider Nurse Practitioner Women's Health; Visit Provider Nurse Practitioner Women's Health
DX: O09.92 Supervision of high risk pregnancy, unspecified, second trimester (principal); Z13.1 Encounter for screening for diabetes mellitus; Z3A.00 Weeks of gestation of pregnancy not specified

== ENCOUNTER → 2024-07-13 | Outpatient (CLI) | payer MEDICAID, SELFPAY ==
--- NOTE | 2024-07-13 09:03 | US_ITS ---
PROCEDURE: OB LIMITED WITH BIOMETRICS REASON FOR EXAM: growth. COMPARISON: Comparison is made with prior study dated May 25, 2024. FINDINGS Number: 1 Position: Vertex Placental Position: Anterior and not low-lying. Placental Abnormalities: None. DIMENSIONS: Biparietal Diameter: 7.85 cm: 31 weeks and 4 days: 51%/ Head Circumference: 29.04 cm: 32 weeks 0 days: 36%/ Abdominal Circumference: 26.7 cm: 30 weeks 6 days: 37%/ Femur Length: 5.81 cm: 30 weeks and 3 days: 17%/ ESTIMATED WEIGHT: 1655 g +/-20 and 48 g ESTIMATED WEIGHT PERCENTILE (24+ weeks): 30 ESTIMATED GESTATIONAL AGE: Baseline: 31 weeks and 1 day By Ultrasound: 31 weeks and 2 days ESTIMATED DATE OF DELIVERY: Baseline: September 13, 2024 By Ultrasound: September 12, 2024 BIOPHYSICAL ASSESSMENT: Amniotic Fluid Volume: Subjectively normal. Amniotic Fluid Index: 16.5 (8-24 cm normal range) Cardiac Motion: 145 beats per minutes (average) Trunk and Limb Motion: Present. MATERNAL ANATOMY: Adnexa: Neither maternal ovary is successfully identified. US/OB Limited With Biometrics IMPRESSION: Single live intrauterine gestation with a mean gestational age of 31 weeks and 2 days. Reading Location: [facility]
== END | disposition home or self-care (01) ==
PROVIDERS: PCP Student in an Organized Health Care Education/Training Program; Referring Provider Obstetrics & Gynecology; Visit Provider Obstetrics & Gynecology
DX: O26.843 Uterine size-date discrepancy, third trimester (principal); Z3A.00 Weeks of gestation of pregnancy not specified
CPT/HCPCS: 76816

== ENCOUNTER → 2024-08-17 | Outpatient (CLI) | payer MEDICAID, SELFPAY | END | disposition home or self-care (01) | LOC: LABSPEC 11:35 | PROVIDERS: PCP Student in an Organized Health Care Education/Training Program; Referring Provider Obstetrics & Gynecology; Visit Provider Obstetrics & Gynecology | DX: O09.93 Supervision of high risk pregnancy, unspecified, third trimester (principal); Z3A.00 Weeks of gestation of pregnancy not specified | CPT/HCPCS: 87081 ==

== ENCOUNTER 2024-09-08 10:15 | Inpatient (IN) | payer MEDICAID, SELFPAY ==
[2024-09-08] VITALS (17 sets, daily range): BP systolic 76–122; BP diastolic 39–74; PULSE 60–79; RESP 13–20; TEMP 35.7–36.6; O2SAT 97–100; BMI 30.2
[2024-09-08] MEDS: Lactated Ringers 1,000 ML 999 ML IV ×2 (11:09→12:05)
[2024-09-08 11:25] LABS: Absolute Lymphocyte Count 1.45 X10^3/uL (0.83-4.51); Absolute Neutrophil Count 6.2 X10^3/uL (2.0-7.7); Basophil# 0.02 X10^3/uL; Basophil% 0.2 % (0-1); Eosinophil# 0.06 X10^3/uL; Eosinophils% 0.7 % (0-5); Hematocrit 38.4 % (37-47); Hemoglobin 12.9 g/dL (12.0-15.0); Lymphocyte # 1.45 X10^3/ul (0.83-4.51); Lymphocyte % 17.4 % (19-41); Mean Corp Hgb Conc 33.6 g/dL (32-36); Mean Corpuscular Volume 89.3 fL (81-99); Mean Platelet Vol. 12.4 fl (6.2-12.0); Monocyte# 0.53 X10^3/uL; Monocyte% 6.4 % (0-10); NRBC Flagged by Analyzer 0 % (0-5); Neutrophil # 6.23 X10^3/uL (2.7-7.7); Neutrophil % 75.1 % (47-70); POSITIVE COUNT YES; Platelet Count 110 K/mm3 (150-450); RBC Distribution Width CV 12.9 % (11.6-14.6); RBC Distribution Width SD 41.8 fl (35.1-43.9); White Blood Count 8.3 K/mm3 (4.4-11.0)
--- NOTE | 2024-09-08 11:26 | NURSING ---
patient with lip piercing and nose piercing, difficult to remove. this was discussed with Beto Guevara CRNA who stated he was okay with patient to keep these peircings in for surgery.
[2024-09-08] MEDS: Acetaminophen 500 MG Tablet 1000 MG PO ×2 (11:32→18:45)
[2024-09-08 11:54] LABS: Differential Indicated SCAN CRITERIA MET
[2024-09-08 11:56] LABS: Platelet Estimate SLT DEC (ADEQ)
[2024-09-08] MEDS: Sodium Citrate/Citric Acid 30 ML UDC PO (11:59)
--- NOTE | 2024-09-08 12:10 | HP.PCM.OB_ITS ---
HPI - General General Date of Admission: 09/08/24 HPI Narrative ROB GARZA, is a 34 y/o @ 39 weeks 2 days who presents to L&D for a repeat section and bilateral tubal ligation. Maternal Data Information ELY Calculator Estimated Delivery Date Method Current WG Current Estimate 09/13/24 Ultrasound #1 39w 2d Other Estimates 08/30/24 LMP (Certain) 41w 2d [facility] Medical History HSV infection History of marijuana use delivery delivered Family history of hearing loss at age younger than 7 years Psychiatric disorder H/O abnormal cervical Papanicolaou smear Family history of autism HSV (herpes simplex virus) anogenital infection Bipolar disorder (spontaneous vaginal delivery) Home Medications ?Medication ?Instructions ?Recorded ?Last Taken ?Type vits,calcium no.78-iron 1 tab PO DAILY vitami n 06/02/17 09/07/24 History fumarate-folic acid 29 mg-1 mg tablet (Prenatabs FA) L.acidophilus-L.plantarum-L.rhamnosus 1 cap PO DAILY p regnancy 02/12/23 09/07/24 08:30 History 1 billion cell capsule,delay rel (Probiotic Pearls Women's) magnesium glycinate 100 mg (as 200 mg PO BID 02/12/23 09/07/24 19:30 History glycinate) tablet omega-3 fatty acids 1,000 mg 1,000 mg PO DAILY PREGNAN CY 10/04/23 09/07/24 19:30 History capsule cholecalciferol (vitamin D3) 50 1,000 unit PO DAILY pr egnancy 02/04/24 09/07/24 19:30 History mcg (2,000 unit) capsule Allergy/AdvReac Type Severity Reaction Status Date / Time No Known Allergies Allergy Verified 09/08/24 10:40 Family History Son Schizophrenia in children Surgical History History of 2 sections H/O section Social History adopted: No household members: significant other and children number of children: 4 current occupational status: unemployed current occupation: [employer] pets and animals: No history of recent travel: No ([facility] ) sexually active: Yes Smoking Status: Former smoker how long ago did patient quit smokin yrs alcohol intake: current alcohol intake frequency: holidays/special occasions only details: not while substance use type: marijuana and other details: medical marijuana card not used since before previos well-balanced diet: daily or most days caffeine: Yes Type: coffee Number of servings: 1 eating out: rarely or never during the past year weight has: remained stable what type of physical activity do you participate in: weight training frequency: 5-6 times per week duration: > 90 minutes/day uday/muslim: None seatbelt use: always do you feel safe at home: Yes additional social history: Nereida Santamaria- [place] getting in [facility] [place] the [place] History 6 Elective abortions Hx Para 5 Spontaneous abortions Hx # Term Pregnancies Ectopic pregnancies Hx # Pregnancies Multiple births # of living children 5 Past Pregnancies Del. Date Name GA/Weeks Outcome Route Bth Weight Infant Gen Labor Lgth Anesthesia Del Locatn Provider FOB 07/26/10 Malia 37 live - full term 7# Male 12 epidur al [facility] Babatundeking Caden Martina 11/20/11 Sudha 39 live - full term 6#3oz Female epidu ral [facility] Lili Aris Gus 08/12/17 Myron 40 live - full term 7#8oz Male 12 hr epidur al [facility] Lilis Aris Gus 02/26/19 Happy 40 live - full term 7#14oz Female 9 h r epidural [facility] Babatundedianas Aris Gus 09/20/23 Tato 39 live - full term 6lbs 14oz Male spinal [facility] Brandy Joel Delivery Date: 07/26/10 Last Updated by: Barbara Moore Autism/Schizophrenia- lives in a assisted Delivery Date: 11/20/11 Last Updated by: Barbara Moore IOL -vaginal varicosities Delivery Date: 02/26/19 Last Updated by: Barbara Moore c section due to herpes outbreak Delivery Date: 09/20/23 Last Updated by: Barbara Moore repeat section Visit Details Expected Delivery Route/Plan repeat C/S with JV Plans Covid status: [] Flu vaccine: declines Tdap vaccine: declines Rhogam: na LARC form signed: yes Problem list reviewed and updated with the most current plan of care details and appropriate orders placed. Relevant counseling for the gestational age provided. Continue routine care and follow up unless otherwise noted in visit notes/problem list details OB Flowsheet Initial Weight: 142 lb Date -?-?-?-?-?-?-?-?-?-?-?-?- EGA Weight BP Urine Prot -?-?-?-?-?-?-?-?-?-?-?-?- Glucose FHR FuHt Pres Dilation -?-?-?-?-?-?-?-?-?-?-?-?- Effaced St Visit Note 02/08/24 -?-?-?-?-?-?-?-?-?-?-?-?- 8w 6d 149 lb (+7 lb) 109/69 -?-?-?-?-?-?-?-?-?-?-?-?- 175 -?-?-?-?-?-?-?-?-?-?-?-?- KW- CRL 2.16cm n ot cons with dates. ELY changed. accepts NIPT 03/07/24 -?-?-?-?-?-?--?-?-?-?-?-?- 12w 6d 149 lb (+7 lb) 109/70 Negative -?-?-?-?-?-?-?-?-?-?-?-?- Negative 160 -?-?-?-?-?-?-?-?-?-?-?-?- JV- only complai nt today is decrease energy. to have mfm scan to look for lower uterine segment thinning or any other problems since last section was 5 months ago. 04/04/24 -?-?-?--?-?-?-?-?-?-?-?-?- 16w 6d 151 lb 8 oz (+9 lb 8 oz) 104/62 Negative -?-?-?-?-?-?-?-?-?-?-?-?- Negative 156 -?-?-?-?-?-?-?-?-?-?-?-?- -No VB. Nausea resolved. Denies concerns 05/03/24 -?-?-?-?-?-?-?-?-?-?-?-?- 21w 0d 154 lb 4 oz (+12 lb 4 oz) 111/69 Negative -?-?-?-?-?-?-?-?-?-?-?-?- Negative 139 -?-?-?-?-?-?-?-?-?-?-?-?- JV- anatomy scan reviewed. has a 7 cm ovarian cyst on the right side and she is also having some pain there. Rpt scan in a month. 05/30/24 -?-?-?-?-?-?-?-?-?-?-?-?- 24w 6d 157 lb 8 oz (+15 lb 8 oz) 92/58 Negative -?-?-?-?-?-?-?-?-?-?-?--?- Negative 145 25 -?-?-?-?-?-?-?-?-?-?-?-?- Sm- no vb lof go od fm no regular ctx 06/21/24 -?-?-?-?-?-?-?-?-?-?-?-?- 28w 0d 160 lb 6 oz (+18 lb 6 oz) 94/60 Negative -?-?-?-?-?-?-?-?-?-?-?-?- Negative 154 26 -?-?-?-?-?-?-?-?-?-?-?-?- MH-NO VB, LOF. Good Fm. 28 w k labs pending. Larc. Declines tdap 07/07/24 -?-?-?-?-?-?-?-?-?-?-?-?- 30w 2d 162 lb 2 oz (+20 lb 2 oz) 104/67 Negative -?-?-?-?--?-?-?-?-?-?-?-?- Negative 140 27 -?-?-?-?-?-?-?-?-?-?-?-?- SM- no vb lof go od fm n oregular ctx 07/21/24 -?-?-?-?-?-?-?-?-?-?-?-?- 32w 2d 163 lb 8 oz (+21 lb 8 oz) 100/63 Negative -?-?-?-?-?-?-?-?-?-?-?-?- Negative 145 30 -?-?-?-?-?-?-?-?-?-?-?-?- KW- reviewed nickolas wth US. no vb/lof/ctx. good fm. KW- reviewed growth US. no v b/lof/ctx. good fm. repeat C/S scheduled. 08/04/24 -?-?-?-?-?-?-?-?-?-?-?-?- 34w 2d 166 lb 8 oz (+24 lb 8 oz) 106/66 Negative -?-?-?-?-?-?-?-?-?-?-?-?- Negative 140 33 -?-?-?-?-?-?-?-?-?-?-?-?- JV- growth an df luid normal last visit. patient still nervous. will rpt bedside fluid next visit. 08/17/24 -?-?-?-?-?-?-?-?-?-?-?-?- 36w 1d 168 lb 8 oz (+26 lb 8 oz) 106/69 Negative -?-?-?-?-?-?-?-?-?-?-?-?- Negative 145 36 Cephalic 0 .5 -?-?-?-?-?-?-?-?-?-?-?-?- JV- no lof, vagi nal bleeding, or dec fm. ely is 15.5, gbs collected 08/25/24 -?-?-?-?-?-?-?-?-?-?-?-?- 37w 2d 170 lb (+28 lb) 99/55 Negative -?-?-?-?-?-?-?-?-?-?-?-?- Negative 140 36 -?-?-?-?-?-?-?-?-?-?-?-?- LC- no vb/ctx/lo f. good fm. no concerns today 09/01/24 -?-?-?-?-?-?-?-?-?-?-?-?- 38w 2d 169 lb (+27 lb) 114/78 Negative -?-?-?-?-?-?-?-?-?-?-?-?- Negative 141 38 Cephalic 0 -?-?-?-?-?-?-?-?-?-?-?-?- JV- no complaint s other than some BHC. discussed breast feeding and healing, etc. consent signed for . ROS Constitutional Constitutional: Denies change in weight, fatigue, fever(s), headache(s), poor appetite or weakness Eyes Eyes: Denies blurry vision, change in vision, seeing flashes or spots in vision ENT HEENT: Denies dizziness, headache(s), loss taste/smell or sore throat Cardiovascular Cardiovascular: Denies chest pain, dizziness, dyspnea, irregular heart rhythm, leg edema, palpitations, rapid heart rate or vomiting Respiratory/Chest Respiratory/Chest: Denies chest tightness, cough, dyspnea or breast pain Gastrointestinal Gastrointestinal: Denies abdominal pain, anorexia, constipation, cramping, diarrhea, hemorrhoids, vomiting or weight changes Genitourinary Genitourinary: Denies dysuria, flank pain, genital lesions, genital pain, urinary frequency or urinary urgency Musculoskeletal Musculoskeletal: Denies back pain, difficulty walking, joint pain, limited range of motion, muscle cramps or numbness Integumentary Integumentary: Denies lesions or unusual bruising Neurologic Neurologic: Denies abnormal movements, abnormal speech, dizziness, numbness, seizure-like activity or syncope Psychiatric Psychiatric: Denies anxiety, behavioral changes, change in appetite, change in libido, cognitive impairment, confusion, depression, difficulty concentrating, hallucinations or suicidal thoughts Endocrine Endocrinology: Denies excessive sweating, polydipsia or polyuria Hematologic/Lymphatic Hematologic/Lymphatic: Denies easy bleeding, easy bruising or lymphadenopathy Allergic/Immunologic Allergic/Immunologic: Denies itchy eyes, lip swelling, seasonal rhinorrhea, rhinitis, throat swelling, tongue swelling, eczemia, wheezing or asthma Vital Signs Vital Signs Vital Signs: 09/08/24 11:12 Temperature 97.8 F Temperature Source Temporal Pulse Rate 68 Respiratory Rate 16 Blood Pressure 113/70 Blood Pressure Mean 84 Blood Pressure Source Monitor Blood Pressure Position Semi-Fowlers Blood Pressure Location Right Arm Pulse Ox 97 Oxygen Delivery Method Room Air Weight Weight: 171 lb Body Mass Index (BMI) 30.2 Physical Exam Const alert, oriented x3, no apparent distress and healthy appearing General Appearance: cooperative; Negative for anxious HEENT normocephalic Face and Sinus: normal facial exam Eyes EOMs intact bilaterally and no scleral icterus General Eye: normal appearance of both eyes Neck full ROM and supple Lymph Lymphatic: no lymphadenopathy noted Chest Chest: abnormal inspection of the chest Resp normal respiratory effort Effort and Inspection: able to speak in complete sentences Cardio regular rate GI soft to palpation and non-tender Inspection: gravid Palpation: soft; Negative for tender Back/Spine no CVA tenderness Extremity normal to inspection, full ROM and no clubbing, cyanosis or edema General Extremity: Negative for calf tenderness or edema Skin Lesions: no lesions Rashes: no rashes Psych mental status grossly normal Labs Labs Labs: Blood Type A POSITIVE Antibody Screen NEGATIVE Hct 38.4 % (37-47) Hgb 12.9 g/dL (12.0-15.0) Obstetrics Ultrasound Syphilis Total Ab Non-reactive Rubella IgG Antibody Reactive (Nonreactive) Hep Bs Antigen Non-Reactive (Nonreactive) Hepatitis C Antibody Non-Reactive (Nonreactive) Hepatitis C Ab (EIA) <0.1 s/co ratio (0.0-0.9) Chlamydia DNA (MAYTE) Negative (Negative) N.gonorrhoeae DNA (MAYTE) Negative (Negative) HIV 1&2 Antibody Non-Reactive (Nonreactive) Glucose 1 Hr 50 gm 86 mg/dL (70-140) Group B Strep DNA Negative (Negative) Rhogam given: No Assessment & Plan (1) Ovarian cyst affecting in second trimester, antepartum: COMMENT: 7 cm simple cyst of right ovary- pt scan in May (2) Short interval between pregnancies complicating , antepartum: COMMENT: last c/s 09/2023 (3) Hx of herpes simplex type 2 infection: COMMENT: treatment at 36 weeks (4) Former smoker, stopped smoking in distant past: COMMENT: Quit 6 yrs ago (5) History of marijuana use: COMMENT: Has not used since prior to last . Need to discuss Random tox screens. (6) Supervision of high-risk : QUALIFIERS: Trimester: third trimester Qualified Code(s): O09.93 - Supervision of high risk , unspecified, third trimester COMMENT: PRR ,gbs is neg, ELY 09/13/24, girl [place] [facility] Malia, Sudha, Myron, Carrol, Tato Santamaria (7) : QUALIFIERS: Weeks of gestation: 38 weeks Qualified Code(s): Z3A.38 - 38 weeks gestation of COMMENT: elects NIPT w/gender & Carrier testing NIPT low risk (8) Hx of section: COMMENT: plans repeat C/S with JV (9) Bipolar disorder: QUALIFIERS: Active/Remission status: remission status unspecified Qualified Code(s): F31.9 - Bipolar disorder, unspecified (10) Family history of autism: COMMENT: eldest child PLAN: Plan After discussing the patient's diagnosis and treatment plan options, patient wishes to proceed with surgical management. I have discussed with the patient the risks, benefits, and alternatives of the procedure which include but are not limited to risks of anesthesia, bleeding, infection, possible damage to bowel, bladder, or surrounding vasculature which could lead to additional surgery to evaluate any complications. Patient agrees to procedure and wishes to proceed. ACOG/uptodate references given for additional information regarding procedure. plan for rpt cs and btl
[2024-09-08] MEDS: Cefazolin 2 GM in Syringe IV (12:13)
[2024-09-08 12:31] LABS: Syphilis Antibodies No_Result (Nonreactive)
[2024-09-08] MEDS: Oxytocin 15 Units/NS 250ml 15 UNITS/250 ML IV.SOLN 83 UNITS IV (13:20)
--- NOTE | 2024-09-08 13:35 | OP.PCM_ITS ---
Assessment & Plan (1) Short interval between pregnancies complicating , antepartum: COMMENT: last c/s 09/2023 (2) Hx of herpes simplex type 2 infection: COMMENT: treatment at 36 weeks (3) Former smoker, stopped smoking in distant past: COMMENT: Quit 6 yrs ago (4) History of marijuana use: COMMENT: Has not used since prior to last . Need to discuss Random tox screens. (5) Supervision of high-risk : QUALIFIERS: Trimester: third trimester Qualified Code(s): O09.93 - Supervision of high risk , unspecified, third trimester COMMENT: PRR ,gbs is neg, ELY 09/13/24, girl [place] [facility] Malia, Sudha, Myron, Carrol, Tato Santamaria (6) : QUALIFIERS: Weeks of gestation: 38 weeks Qualified Code(s): Z3A.38 - 38 weeks gestation of COMMENT: elects NIPT w/gender & Carrier testing NIPT low risk (7) Hx of section: COMMENT: plans repeat C/S with JV (8) Bipolar disorder: QUALIFIERS: Active/Remission status: remission status unspecified Qualified Code(s): F31.9 - Bipolar disorder, unspecified (9) Family history of autism: COMMENT: eldest child Maternal Data Information ELY Calculator Estimated Delivery Date Method Current WG Current Estimate 09/13/24 Ultrasound #1 39w 5d Other Estimates 08/30/24 LMP (Certain) 41w 5d Gestational age: 39 weeks 2 days Operative Report (OB) Details Procedure Type: low transverse Date of Procedure: 09/08/24 Procedure Start Time: 12:23 Procedure Stop Time: 13:05 Time of Delivery: 12:30 Pre-Operative Diagnosis: Repeat Elective and Desires elective sterilization Post-Operative Diagnosis: Same as Pre-operative diagnosis Type of Anesthesia: Spinal Antibiotic Given: Ancef 2 grams IV x1 Drain: Galeas to straight drain Estimated Blood Loss: 400cc Findings Description of surgery: The patient is a 4 y/o @ 39 weeks 2 days presented for repeat and bilateral salpingectomy . Spinal anesthesia was placed without difficulty. Galeas catheter was placed. The patient was placed in the dorsal supine position with leftward tilt. Patient was prepped and draped in the normal sterile fashion. The old scar was cut from the skin and a Pfannenstiel skin incision was made with the scalpel and carried through to the underlying layer of fascia with the scalpel. Fascia was nicked in the midline and the incision extended laterally. The rectus bellies were dissected off superiorly and inferiorly with out complication both sharply and bluntly. The peritoneum was entered digitally. The incision was stretched and a 3 cm uterine windo was identified. The tissue overlying the window was carfully dissected and a low transverse uterine incision was made with blunt dissection only. The infant's head was delivered atraumatically followed by the anterior and posterior shoulders without complication the rest of the delivered. The cord was clamped and cut and the was handed off to awaiting nurse. The placenta was delivered spontaneously immediately following and was noted to be intact and have a three- vessel cord. The uterus was exteriorized cleared of all clots and debris, and the incision was closed in a double layer closure using #1 Vicryl and #1 Monocryl. The ovaries and fallopian tubes were noted to be within normal limits. The bowel was adherent to the left fallopian tube. This was gently dissected with blunt and sharp dissection. A bilateral salpingectomy was then performed using the ligasure device. The uterus was returned to the maternal abdomen and gutters were cleared of all clots and debris. The peritoneum was closed with 3-0 Monocryl in a running fashion. Gloves were changed prior to fascial closure. Fascia was closed with 0 PDS in a running fashion. Subcutan eous tissue was copiously irrigated and the skin was closed with 3-0 Monocryl in a subcuticular fashion. Mepilex dressing was applied without complication. Patient was taken to recovery in stable condition. Surgical findings: adhesions of the bowel to the posterior uterus. Presentation: Vertex Amniotic Membrane Rupture Type: Artificial Amniotic Fluid Description: Clear Placental Delivery Description: Expressed Placenta Disposition: [facility] Specimen collected: No Cord Vessel Description: 3 Vessels Cord Entanglement: None Infant A gender: Female (1 minute): 9 (5 minute): 9 Delayed Cord Clamping: Yes Physical Security Manager encyclopedia research worker: Yes Heading Maker: StahallieSoares Tasks completed by nursing assistants teacher: Closing and Retracting Additional biology laboratory assistant?: No Complications Complications: No Multi Select Codes Urinary/Genital Urinary/Genital CPT Codes: 91426 delivery+ Care([facility])
--- NOTE | 2024-09-08 14:00 | PLAC_PTH ---
PATIENT: ROB GARZA LOC: [facility] U#:[id number] AGE/SX: 34/F ROOM: WP005 RE09/08/[address]: Dr. Brandy Fine DO : 1990 BED: 1 DIS: 09/09/2024 SPEC #: [id number] RECD: 09/08/24 14:35 STATUS: JAVID MATY #: [id number] SHELLEY: 09/08/24 14:[address]: Brandy Fine DEPT: SURGICAL PATHOLOGY RECD BY: John Nolan ENTERED: 09/11/24 08:23 SP TYPE: PLACENTA OTHR DR: Dr. Eliot Jo DO Tissues: A - Fallopian tube Procedures: Surgery Specimen Level II HEADER OPERATION: Tubal ligation PRE-OP DIAGNOSIS: Sterilization TISSUE SUBMITTED: A- Bilateral fallopian tubes MICROSCOPIC DIAGNOSIS A. Fallopian tubes, sterilization, bilateral salpingectomy: * Complete luminal cross-section confirmed, right. * Complete luminal cross-section confirmed, left. MICROSCOPIC DESCRIPTION Slides are reviewed. GROSS DESCRIPTION A. Received in formalin in a container labeled with the patient's name, date of , and suture right are bilateral fimbriated fallopian tube segments, the right received with a stitch. The right is 6.5 cm in length by 1.0 cm in diameter with a 1.0 x 0.9 x 0.9 cm paratubal cyst. The left segment is 7.0 cm in length by 0.6 cm in diameter. Each display card-pink serosa with a feathery fimbriated end. Sectioning of each reveals a pinpoint lumen. Microfilmer sections:A1. Right tubeA2. Left tube [facility] 09-11-2024 CPT:04360f9
[2024-09-08] MEDS: Ketorolac 30 MG/ML Syringe IV ×2 (14:01→20:37)
[2024-09-08 14:37] LABS: Pathology Specimen OB SEE PATHOLOGY REPORT
--- NOTE | 2024-09-08 16:44 | DCINST_ITS ---
Discharge Instructions Diet Discharge Diet: No restrictions DC O2, CPAP, BIPAP needs Home O2 Discharge instructions: No Dressing / Incision Discharge Activity: May Not Drive (for 2 weeks or while taking narcotic pain medications.), May Shower and May Take a Tub Bath (in 7 days.) May resume sexual activity in: 4-6 weeks Weight Bearing Status: Full weight bearing Lifting Restrictions: 20 pounds Dressing / Incision Call your doctor if your incision/area has: Continuous Slow Oozing, Sudden Increased Bleeding, Increased Pain/ Swelling, Increased Redness and Foul Smelling Discharge Call your doctor if you observe: Fever of 101 or Higher and Using more than 1 pad per hour Suture Line Care: Avoid Pulling/Pushing and Avoid Pinching/Bending Cleanse incision/area with: Soap & Water and Keep Dressing Clean & Dry Follow Up Care Please Follow Up With: Brandy Fine DO When: Call [phone] to make an appointment for an incision check in 1-2 weeks. Test Results: Test results from this visit will be discussed in further detail at your follow- up appointment, if applicable. Discharge Plan Admission Admit Date/Time: 09/08/24 10:15 Primary Reason for Your Visit: Attending Provider: Brandy Fine Primary Care Provider: Eliot Jo Discharge Orders/Prescriptions Prescriptions: New ibuprofen 800 mg tablet 800 mg PO Q8H PRN (Reason: pain) Qty: 30 0RF No Action magnesium glycinate 100 mg tablet 200 mg PO BID Probiotic Pearls Women's 1 billion cell capsule,delayed release(DR/EC) 1 cap PO DAILY omega-3 fatty acids 1,000 mg capsule 1,000 mg PO DAILY Prenatabs FA 1 TABLET tablet 1 tab PO DAILY cholecalciferol (vitamin D3) 50 mcg (2,000 unit) capsule 1,000 unit PO DAILY Referrals / Follow Up: Eliot Jo DO [Primary Care Provider] -
[2024-09-08] MEDS: Ondansetron 4 MG/2 ML Vial IV (18:45)
[2024-09-08] MEDS: 0.9% Saline Lock 10 ML Syringe IV (20:37)
[2024-09-09] MEDS: Acetaminophen 500 MG Tablet 1000 MG PO ×3 (00:51→14:28)
[2024-09-09 00:58] VITALS: BP 99/64; PULSE 69; RESP 16; TEMP 36.4; O2SAT 99
[2024-09-09] MEDS: Ketorolac 30 MG/ML Syringe IV ×2 (01:46→08:35)
[2024-09-09] MEDS: 0.9% Saline Lock 10 ML Syringe IV ×2 (01:46→08:35)
[2024-09-09] MEDS: DiphenhydrAMINE 25 MG Capsule PO (02:29)
[2024-09-09 04:40] VITALS: BP 98/62; PULSE 62; RESP 16; TEMP 36.6; O2SAT 98
[2024-09-09 05:34] LABS: Hematocrit 35.6 % (37-47); Hemoglobin 11.9 g/dL (12.0-15.0); Mean Corp Hgb Conc 33.4 g/dL (32-36); Mean Corpuscular Hgb 30.1 pg (27.0-32.0); Mean Corpuscular Volume 90.1 fL (81-99); Platelet Count 106 K/mm3 (150-450); RBC Distribution Width SD 42.5 fl (35.1-43.9); Red Blood Count 3.95 M/mm3 (4.2-5.4); White Blood Count 12.5 K/mm3 (4.4-11.0)
--- NOTE | 2024-09-09 08:37 | PCM.PN.CNM ---
Subjective Subjective Patient doing well without complaints. Tolerating PO. Ambulating without difficulty. Had straight cath overnight for inability to void. has voided 100ml this morning. Feeding well. Denies chest pain, shortness of breath, calf pain/swelling, fevers, chills, lightheadedness. Objective Data Objective Data Vital Signs: Vital Signs Temp Pulse Resp BP Pulse Ox O2 Del Method 97.8 F 62 16 98/62 98 Room Air 09/09/24 04:40 09/09/24 04:40 09/09/24 04:40 09/09/24 04:40 09/09/24 04:40 09/09/24 04:40 Oxygen Delivery Method Room Air Weight: 171 lb Body Mass Index (BMI) 30.2 Intake & Output: Intake and Output for Last 24 Hours 09/07/24 09/08/24 09/09/24 23:59 23:59 23:59 Intake Total 2185.75 / 2185.75 Output Total 2800 / 2800 800 / 800 Balance -614.25 / -614.25 -800 / -800 Lab / Micro Data 09/09/24 05:25 Labs: Laboratory Results - last 24 hr 09/08/24 11:05: WBC 8.3, RBC 4.30, Hgb 12.9, Hct 38.4, MCV 89.3, MCH 30.0, MCHC 33.6, RDW Std Deviation 41.8, RDW Coeff of Julien 12.9, Plt Count 110 L, MPV 12.4 H, Immature Gran % (Auto) 0.200, Neut % (Auto) 75.1 H, Lymph % (Auto) 17.4 L, [place] % (Auto) 6.4, Eos % (Auto) 0.7, Baso % (Auto) 0.2, Absolute Neuts (auto) 6.2, Absolute Lymphs (auto) 1.45, Nucleated RBC % 0, Platelet Estimate SLT DEC, Syphilis Total Ab No_Result, Blood Type A POSITIVE, Antibody Screen NEGATIVE 09/09/24 05:25: WBC 12.5 H, RBC 3.95 L, Hgb 11.9 L, Hct 35.6 L, MCV 90.1, MCH 30.1, MCHC 33.4, RDW Std Deviation 42.5, RDW Coeff of Julien 13.0, Plt Count 106 L, MPV 12.0 Physical Exam Const alert and oriented x3 Chest inspection of chest normal and inspection of breasts normal Resp normal respiratory effort and normal air movement GI normal to inspection, nondistended, normoactive bowel sounds Uterus Palpation: uterus fundus firm Extremity normal to inspection, full ROM and no pedal edema Skin no rashes or lesions noted Skin Narrative: dressing c/d/i Psych mental status grossly normal Assessment & Plan (1) delivery delivered: COMMENT: rpt c/s JV girl-aspen PLAN: s/p LTCS PPD # 1 1. routine post care 2. breast feeding- support given 3. rh positive 4. rubella immune 5. if able to void x2, pain managed and cleared- may be early d/c today.
[2024-09-09 08:44] VITALS: BP 103/65; PULSE 55; RESP 16; TEMP 36.6; O2SAT 100
[2024-09-09] MEDS: Senna/Docusate Sodium 1 Tablet PO (10:47)
[2024-09-09] MEDS: oxyCODONE 5 MG Tablet PO (10:48)
[2024-09-09 12:00] VITALS: BP 106/69; PULSE 54; RESP 16; TEMP 36.5; O2SAT 100
--- NOTE | 2024-09-09 14:00 | CASEMGMT ---
Social Work Assessment Labor and Delivery Unit Patient Address: [address] [place] [address] [place] [address] Phone number: [phone] Date of Referral: 09/08/2024 Time of Referral: 15:57 Referred By: Brandy Fine Date of Intervention: ?09/09/2024 Time of Intervention: 13:59 Reason for Referral: Mental Health History obtained from: Medical records, mother of baby (MOB) and father of baby (FOB).? Household composition: MOB, FOB (Rosalio Farris, age 32), MOB?s children 12 year old daughter Sudha, 7 year old son, Myron, 5 year old daughter Carrol, MOB and FOB?s 11 month old son, Tato and daughter Amelie, born on 09/08/24. It should be noted that SANJUANA also has a 14 year old son, Malia who has been diagnosed with Autism and Schizoaffective Disorder who currently resides in a snf. Patient's parent/guardian status: MOB and FOB have been together for 2 years and for 7 months. ?Both are actively involved and will be providing care for baby. MOB denied any concerns with domestic violence and described a positive and supportive relationship with the FOB. Medical History: ?: : 7, (medical records reflect different numbers for this, some citing 6) Para: now 6. SANJUANA had a medical on 12/01/22. SANJUANA received [facility] through [facility] beginning at 8 weeks and 6 days. Visits were noted to be routine. Apgars: 9 and 9. Weight: 6lb, 5 oz. Scoop Machine Operator: Hannah. Educational Status: MOB and FOB denied any issues or concerns with reading or writing. MOB earned her High School Diploma and the FOB earned his Associate?s Degree in [employer]. Financial Status: MOB and FOB reported their income is sufficient to meet the needs of their family at this time. MOB is currently a [id number] mom (SAHM) and the FOB is currently employed full-time with [employer] as a energy broker. FOB reported he is able to care worker. Supplies: MOB and FOB reported they have all the supplies they need for baby at this time including but not limited to: Car Seat, bassinet, pack-n-play, crib, diapers, breast pump, bottles and clothing. Childcare/Caregiver(s):? SANJUANA reported she will be the primary caregiver as a SAHM but the FOB will also provide care during the times he is not working. Transportation:? MOB and FOB reported they are both licensed drivers and have a reliable vehicle to take baby to and from all medical appointments. No transportation issues identified. Programs/Agencies Involved: Medicaid and Food stamps. SANJUANA denied any other agency involvement/resources at this time and denied a current need. WIC was previously used however MOB denied a current interest. Children Services/Legal Issues:? Denied. Behavioral Health Issues: ??Mental Health History: ?SANJUANA has a history of Bipolar. MOB reported she?s been off of medication for 10 years and stated symptoms are effectively managed through a healthy lifestyle including diet and exercise. FOB denied any mental health. ?Substance Use History:?SANJUANA used to have a medical marijuana card however stated she hasn?t smoked marijuana for over 2 years. SANJUANA was also a former smoker however also hasn?t smoked in over 2 years. Both MOB and FOB denied any drug or alcohol use or abuse. Family History: SANJUANA reported a family history of narcotic abuse and alcoholism on her dad?s side of the family. All family members with a history are now . FOWilma denied any family history of drug or alcohol abuse or mental health. ??Drug Screens: ?None obtained at the time of this admission. ? Family/Social Stressors: ?MOB and FOB denied any current family or social stressors. Support Systems: Ample.? SANJUANA identified her biggest supports as the FOB, ?s maternal grandmother (MGM) and MOB?s friend, Nilsa. MOB and FOB also identified ?s paternal grandmother (PGM) and paternal grandfather (PGF) as supports however they reside in [place]. Depression/Shaken Baby/Safe Sleeping: plate put in worker provided verbal and written education on PPD, Safe Sleeping and Shaken Baby.? Parents verbalized an understanding. ??? ASSESSMENT:? MOB and FOB provided consent to social work visit. Upon arrival, MOB was sitting upright in the hospital bed holding . FOB was near-by, sitting on a couch. MOB and FOB were both verbally engaged and cooperative.? plate put in worker observed positive interaction between the MOB and FOB as well as towards . Both were observed to be very attentive, gentle and attached to . At one point, MOB handed baby off to the FOB. Both appeared to be at ease and comfortable with . At the end of the assessment, social director asked to speak with the MOB which both MOB and FOB were agreeable to. MOB reported feeling safe, denied any concerns with drug or alcohol abuse issues, unmanaged mental health or domestic violence. ? Safe Plan of Care for related to substance use: N/A; not needed. ? PLAN:? Baby to be discharged home when ready.? plate put in worker also provided written information on depression, depression resources and Help Me Grow as additional resources offered by social director which MOB and FOB accepted. No other services requested or indicated. Brandy Ash, PAINTER [employer], EXECUTIVE CHAIRMAN OF THE BOARD
[2024-09-09] MEDS: Ibuprofen 600 MG Tablet PO (14:28)
== END 2024-09-09 15:30 | disposition home or self-care (01) | DRG 539 ==
PROVIDERS: Admitting Provider Obstetrics & Gynecology; PCP Student in an Organized Health Care Education/Training Program; Referring Provider Obstetrics & Gynecology; Visit Provider Obstetrics & Gynecology
PROC: 10D00Z1 Extraction of Products of Conception, Low, Open Approach (ICD-10-PCS; CPT 59514; principal; 2024-09-08 11:45)
DX: O34.219 Maternal care for unspecified type scar from previous cesarean delivery (principal); O99.893 Other specified diseases and conditions complicating puerperium; Z87.891 Personal history of nicotine dependence; Z30.2 Encounter for sterilization; Z37.0 Single live birth; Z3A.39 39 weeks gestation of pregnancy; R33.9 Retention of urine, unspecified
CPT/HCPCS: 59025; 59050; 85025; 85027; 86780; 86850; 86900; 86901; 88302; 88307; 99221; A4216; G0378; J2405